=== PATIENT | female | born 1995 | race Caucasian/White ===

== ENCOUNTER 2024-07-17 10:54 | Outpatient (AMB) | payer OTHER, SELFPAY ==
--- NOTE | 2024-07-17 10:59 | MHC.PC.OV ---
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 Intake Note: new patient to establish care Timekeeping Supervisor Required: No Allergies No Known Allergies Allergy (Verified 07/17/24 11:16) Medication List - Last Reconciled 07/17/24 by GRISEL AmezcuaPAdenike methylphenidate HCl ER 36 mg PO DAILY Tobacco use date assessed: 07/17/24 Dental Screening Dental Screen Date: 07/17/24 Did you have a dental visit in the last 12 months?: Yes Did you have a dental problem in the last 6 months where you did not have access to dental care?: No Was dental information given to patient?: Patient has dentist HPI HPI Comments History of Present Illness Details 29 y/o F with ADHD, family hx of DM, hemorrhoids Social: Family hx: Dad, MGF, Sister Type 1 DM 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 c/o abdominal bloating and constipation. The bloating reportedly began at the beginning of the month, and she describes it as feeling super loaded all the time. The patient notes a change in her bowel habits; she typically has a bowel movement daily, but it has become less frequent. She has experienced bright red blood upon wiping, which she attributes to hemorrhoids. She denies any changes in stool color or blood in the stool itself and has no family history of colon cancer. The patient has experienced these symptoms in the context of stress and mentioned having mental issues related to family matters. She uses hydrocortisone cream for a rash on her torso, which she has had for years and is currently not severe. There is a history of an abnormal Pap smear; however, details are unclear. The patient has an IUD and had a gynecological visit a few weeks ago but has not yet established a local clam dredger. 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 - Exercise: Finds gym attendance burdensome due to lack of motivation and interaction with people. - Family History: Type 1 diabetes mellitus in the father, grandfather, and sister. - Stress: Reports considerable stress related to family issues. Health Maintenance - Recent gynecological examination conducted a few weeks ago. - Flu vaccination is up to date. - Lab work for routine screening is ordered to assess general wellness and investigate bloating, including potential links to known family history of diabetes. Physical Exam General: Well developed, well nourished, in no acute distress. Appears stated age. Head: Normocephalic, atraumatic. Eyes: Pupils are equal, round and reactive to light and accommodation. Conjunctivae are clear. Vision grossly normal. Ears: Tympanic membranes clear bilaterally, external auditory canal within normal limits Nose: Patent, without discharge. Mouth: There are no ulcers or lesions noted. No inflammation, no post nasal drip, no plaques nor exudates. Neck: Supple, no adenopathy or thyromegaly. Lungs: Clear to auscultation bilaterally. No rales, rhonchi or wheeze noted. Good air flow in all franco. Heart: Regular rate and rhythm. No murmurs, click, rubs or gallops are noted. Abdomen: Bowel sounds present in all quadrants, hypoactive, The abdomen is soft, nontender, with no masses or organomegaly noted. No hernias are noted. Musculoskeletal: Joints are nontender, without swelling, redness, or effusions. Range of motion is observed to be normal. Pulses: Peripheral pulses are equal and palpable bilaterally. Extremities: No clubbing, cyanosis nor edema is noted. Neurologic: Gait and station normal. Cranial Nerves 2-12 intact. Motor strength grossly symmetrical and intact. No sensory loss. Balance normal. Skin: Rash noted on torso, tinea versicolor to torso, left upper back is a hypopigmented skin lesion. No other rashes, ulcers, or lesions noted. Turgor is good. Skin color is good. Hair and nails are without abnormalities. Psych: Normal eye contact, affect and mood appropriate, and normal interactions. Patient is alert and appropriate to context. Reports increased stress and some difficulty with motivation and energy levels, but denies feeling hopeless. Plan - Abdominal Bloating and Constipation: Recommend increasing dietary fiber intake and hydration. Consider [id number] laxatives, such as a magnesium supplement, to facilitate bowel movements. Educate about stool softeners like docusate. Or try probiotic - Hemorrhoids: Referral to general surgery for potential removal, especially if they become more bothersome. - Rash: Recommend using [id number]-[id number] selenium sulfide shampoo for the tinea versicolor to manage symptoms affecting the torso. - ADHD: Continue current medication methamphetamine regimen as it is effective - RX by outside prescriber - Health Maintenance: Routine screening labs ordered. Discuss the need to update any due preventative screenings. - Gynecological Health: Referral to [facility] MANAGER for continued women's wellness care. Patient was informed and verbally consented to the use of an ambient scribe for clinic note documentation during this visit. Discussion Notes During our discussion, I reviewed the patient's primary complaints, emphasizing the likely diagnosis of constipation-related abdominal bloating and hemorrhoids, given the presentation of symptoms. I encouraged dietary changes and suggested considering medical intervention for hemorrhoids if symptoms persist. Regarding the rash, I explained fungal etiology and recommended topical treatment with selenium sulfide shampoo. We also discussed her ADHD management, noting effectiveness. Health maintenance was addressed, with an emphasis on updating routine labs and exams, especially concerning her family history of diabetes. A referral to a local [facility] RECRE[facility] FAC[facility]ITIES MANAGER was also suggested in light of the patient's recent move and no established care locally. We discussed the necessity of surgical consultation for bothersome hemorrhoids and dermatological evaluation for the persisting rash. Patient Instructions - Increase fiber intake by consuming fruits, vegetables, and whole grains. - Maintain adequate hydration by drinking sufficient water daily. - Apply selenium sulfide shampoo as instructed on affected skin areas. - Continue ADHD medications as prescribed and monitor stress levels. - Complete all ordered lab work and follow up on any recommended results. - Attend consultation appointments with surgery and dermatology as planned. - Follow up with the referred [facility] RE[facility] FAC[facility]ITIES MANAGER to establish local care. - Return for evaluation if symptoms worsen or new symptoms develop RTO 1 year for CPE, sooner PRN. An additional 15 minutes was spent addressing the problem(s) noted at todays visit. This includes time spent before the visit reviewing the chart, time spent during the visit, and time spent after the visit on documentation [facility] Medical History (Updated 07/17/24 @ 17:08 by ESTHER Amezcua) No pertinent past medical history Surgical History (Updated 07/17/24 @ 11:06 by Yuriy Jenkins MA) No pertinent past surgical history Family History Father Hypertension Diabetes Paternal Grandmother Cardiovascular disease Paternal Grandfather Diabetes Sister Diabetes Social History Household Members: Spouse Both parents involved: No Caregiver staying overnight: No Housing: Apartment Are you a primary hemodialysis patient care specialist to a significant other at home: No Do you presently have visiting nurse or other home services: No 75 years or older and lives alone: No Alcohol intake: current Alcohol intake frequency: a few times a month Patient Tobacco Use Status: Never used Tobacco e-Cigarette/Vaping Use: Never Used Second Hand Smoke Exposure: No service: Yes Current occupational status: employed Current occupation: [employer] Cognitive needs: No Hearing needs: No Vision needs: No Questionnaire PHQ-9 Over the last 2 weeks, how often have you been bothered by any of the following problems? 1. Little interest or pleasure in doing things: not at all 2. Feeling down, depressed, or hopeless: not at all 3. Trouble falling or staying asleep, or sleeping too much: more than half the days 4. Feeling tired or having little energy: several days 5. Poor appetite or overeating: not at all 6. Feeling bad about yourself - or that you are a failure or have let yourself or your family down: not at all 7. Trouble concentrating on things, such as reading the newspaper or watching television: not at all 8. Moving or speaking so slowly that other people could have noticed. Or the opposite - being so fidgety or restless that you have been moving around a lot more than usual: not at all 9. Thoughts that you would be better off or of hurting yourself in some way: not at all Total score: 3 Depression Screening Interpretation: Negative Depression Screening Done: Yes 92735 - PHQ-9 Billing: Yes Source: Developed by Drs. Chang Kunz, Emily Mccabe, Matt Walters and colleagues, with an educational thierno from [employer]. Thrive Questionnaire Date Thrive assessed: 07/17/24 I am a: Patient What is your living situation today?: I have a steady place to live Within the past 12 months, did the food you bought not last and you didn't have the money to get more?: Never true Within the past 12 months, did you worry whether your food would run out before you got money to buy more?: Never true Do you have trouble paying for medicines?: No Do you have trouble getting transportation to medical appointments?: No Do you have trouble paying your heating and electricity bill?: No Do you have trouble taking care of your child, family member or friend?: No Do you have trouble with day-to-day activities such as bathing, preparing meals, shopping, managing finances, etc.?: No Are you currently unemployed and looking for a job?: No Are you interested in more education?: I choose not to answer this question Please select the resources that you would like help with: None Currently or been in a relationship where the following occur: No concerns reported THRIVE Score: 0 AUDIT C Alcohol Use Questionnaire (AUDIT-C) 1. How often do you have a drink containing alcohol?: 2-4 times a month 2. How many drinks containing alcohol do you have on a typical day when you are drinking?: 3 or 4 3. How often do you have six or more drinks on one occasion?: Never Total Score: 3 Score Reviewed/Action Taken: Yes JONNIE-7 AMB Questionnaire JONNIE-7 Date JONNIE - 7 assessed: 07/17/24 Feeling nervous, anxious, or on edge: 0 = Not at all Not being able to stop or control worryin = Not at all Worrying too much about different things: 0 = Not at all Trouble relaxin = Not at all Being so restless that it is hard to sit still: 0 = Not at all Becoming easily annoyed or irritable: 1 = Several days Feeling afraid as if something awful might happen: 0 = Not at all Total JONNIE-7 score (0-4 normal; 5-9 mild; 10-14 moderate; 15-21 severe): 1 Source: Developed by Drs. Chang Kunz, Emily Mccabe, Matt Walters and colleagues, with an educational thierno from [employer]. JONNIE-7 Assessment Billing JONNIE-7 Assessment Tool: JONNIE-7 Assessment 07500 Physical exam (Primary Care) Vital Signs: Last Vital Signs Pulse 61 07/17/24 11:06 Resp 13 07/17/24 11:06 BP 139/86 07/17/24 11:06 Pulse Ox 100 07/17/24 11:06 Oxygen Delivery Method Room Air 07/17/24 11:06 BMI result Body Mass Index 25.1 Tobacco/Smoking Status: Tobacco use Status Tobacco use date assessed 07/17/24 07/17/24 11:08 Patient Tobacco Use Status Never used Tobacco 07/17/24 11:08 e-Cigarette/Vaping Use Never Used 07/17/24 11:08 PHQ-9: PHQ-9 Score PHQ-9: Total score 3 07/17/24 12:19 Depression Screening Interpretation: Negative Thrive Assessment: Date of Thrive Assessment Date Thrive assessed 07/17/24 07/17/24 11:08 Currently or been in a relationship where the following occur: No concerns reported Coding Level of Care Code New Pt Level 2 (85797) New Pt Prev Care 18-39yr(04676 Diagnoses Encounter for general adult medical examination with abnormal findings Z00.01 Family history of diabetes mellitus Z83.3 Laboratory exam ordered as part of routine general medical examination Z00.00 Abdominal bloating R14.0 Attention deficit hyperactivity disorder (ADHD), predominantly inattentive type F90.0 Attention deficit-hyperactivity disorder type: predominantly inattentive Grade I hemorrhoids K64.0 Hemorrhoid type: first degree Tinea versicolor B36.0 Atypical pigmented skin lesion L81.9 Encounter to establish care with new doctor Z76.89 Additional Codes JONNIE-7 Assessment Billing - JONNIE-7 Assessment Tool: JONNIE-7 Assessment 34960 ([id number]) PHQ-9 - 20859 - PHQ-9 Billing: Yes ([id number]) Assessment & Plan Assessment & Plan (1) Encounter for general adult medical examination with abnormal findings: Code(s): Z00.01 - Encounter for general adult medical examination with abnormal findings (2) Family history of diabetes mellitus: Code(s): Z83.3 - Family history of diabetes mellitus Category: Medical (3) Laboratory exam ordered as part of routine general medical examination: Code(s): Z00.00 - Encounter for general adult medical examination without abnormal findings Category: Medical (4) Abdominal bloating: Code(s): R14.0 - Abdominal distension (gaseous) Category: Medical (5) ADHD: Code(s): F90.9 - Attention-deficit hyperactivity disorder, unspecified type Category: Medical Qualifiers: Attention deficit-hyperactivity disorder type: predominantly inattentive Qualified Code(s): F90.0 - Attention-deficit hyperactivity disorder, predominantly inattentive type (6) Hemorrhoids: Code(s): K64.9 - Unspecified hemorrhoids Category: Medical Qualifiers: Hemorrhoid type: first degree Qualified Code(s): K64.0 - First degree hemorrhoids (7) Tinea versicolor: Code(s): B36.0 - Pityriasis versicolor Category: Medical (8) Atypical pigmented skin lesion: Comment: LEFT UPPER BACK Code(s): L81.9 - Disorder of pigmentation, unspecified Category: Medical (9) Encounter to establish care with new doctor: Code(s): Z76.89 - Persons encountering health services in other specified circumstances Plan . Orders: Orders Complete Blood Count no Diff Today Z00.00 - Encounter for general adult medical examination without abnormal findings Lipid Panel Today Z00.00 - Encounter for general adult medical examination without abnormal findings Microalbumin, Random (w Creat) Today Z00.00 - Encounter for general adult medical examination without abnormal findings TSH reflex Free T4 Today Z00.00 - Encounter for general adult medical examination without abnormal findings Vitamin D 25-OH Total Today Z00.00 - Encounter for general adult medical examination without abnormal findings UA CC w/rflx Micro + Cult Today Z00.00 - Encounter for general adult medical examination without abnormal findings Comprehensive Met. Panel Today Z00.00 - Encounter for general adult medical examination without abnormal findings Hemoglobin A1c Today Z00.00 - Encounter for general adult medical examination without abnormal findings Vitamin B12 and Folate Today Z00.00 - Encounter for general adult medical examination without abnormal findings Referrals [facility] RE[facility]AC[facility]ITIES MANAGER Referral Z12.4 - Encounter for screening for malignant neoplasm of cervix General Surgery Referral K64.9 - Unspecified hemorrhoids Dermatology Referral B36.0 - Pityriasis versicolor, L81.9 - Disorder of pigmentation, unspecified Patient Instructions: Health screenings for women You should visit your health care provider from time to time, even if you are healthy. The purpose of these visits is to: Screen for medical issues Assess your risk for future medical problems Encourage a healthy lifestyle Update vaccinations and other preventive care services Help you get to know your provider in case of an illness Information Even if you feel fine, you should still see your provider for regular checkups. These visits can help you avoid problems in the future. For example, the only way to find out if you have high blood pressure is to have it checked regularly. High blood sugar and high cholesterol levels also may not have any symptoms in the early stages. A simple blood test can check for these conditions. There are specific times when you should see your provider or receive specific health screenings. The [place] Preventive Services Task Force publishes a list of recommended screenings. Below are screening guidelines for women ages 18 to 39. BLOOD PRESSURE SCREENING Your blood pressure should be checked at least once every 3 to 5 years if: Your blood pressure is in the normal range (top number less than 120 mm Hg and bottom number less than 80 mm Hg) You don't have risk factors for high blood pressure Ask your provider if you need your blood pressure checked more often if: The top number is 120 to 129 mm Hg or the bottom number is 70 to 79 mm Hg You have diabetes, heart disease, kidney problems, are overweight, or have certain other health conditions You have a first-degree relative with high blood pressure You are Black You had high blood pressure during a If the top number is 130 mm Hg or greater or the bottom number is 80 mm Hg or greater, this is considered stage 1 hypertension. Schedule an appointment with your provider to learn how you can reduce your blood pressure. Watch for blood pressure screenings in your area. Ask your provider if you can stop in to have your blood pressure checked. BREAST CANCER SCREENING Experts do not agree about the benefits of breast self-exams in finding breast cancer or saving lives. Talk to your provider about what is best for you. A screening mammogram is not recommended for most women under age 40. Your provider may discuss and recommend mammograms, MRI scans, or ultrasounds if you have an increased risk for breast cancer, such as: A mother or sister who had breast cancer at a young age (most often starting screening earlier than the age the close relative was diagnosed) You carry a high-risk genetic marker CERVICAL CANCER SCREENING Cervical cancer screening should start at age 21 years unless your provider advises otherwise. After the first test: Women ages 21 through 29 should have a Pap test every 3 years. Exoprts do not agree on whether HPV testing is recommended for this age group. Women ages 30 through 65 should be screened with either a Pap test every 3 years or the HPV test every 5 years or both tests every 5 years (called cotesting ). Women who have been treated for precancer (cervical dysplasia) should continue to have Pap tests for 20 years after treatment or until age 65, whichever is longer. If you have had your uterus and cervix removed (total hysterectomy), and you have not been diagnosed with cervical cancer or precancer (high grade cervical neoplasia), you do not need cervical cancer screening. CHOLESTEROL SCREENING Cholesterol screening should begin at: Age 45 for women with no known risk factors for coronary heart disease Age 20 for women with known risk factors for coronary heart disease Repeat cholesterol screening should take place: Every 5 years for women with normal cholesterol levels More often if changes occur in lifestyle (including weight gain and diet) More often if you have diabetes, heart disease, kidney problems, or certain other conditions DIABETES SCREENING You should be screened for diabetes starting at age 35 and then repeated every 3 years if you have no risk factors for diabetes. Screening may need to start earlier and be repeated more often if you have other risk factors for diabetes, such as: You have a first degree relative with diabetes. You are overweight or have obesity. You have high blood pressure, prediabetes, or a history of heart disease. Screening for diabetes should be done if you are planning to become and you are overweight and have other risk factors such as high blood pressure. DENTAL EXAM Go to the dentist once or twice every year for an exam and cleaning. Your dentist will evaluate if you need more frequent visits. EYE EXAM Have an eye exam every 5 to 10 years before age 40. If you have vision problems, have an eye exam every 2 years or more often if recommended by your provider. You should have an eye exam that includes an examination of your retina (back of your eye) at least every year if you have diabetes. IMMUNIZATIONS Commonly needed vaccines include: Flu shot: get one every year. COVID-19 vaccine: ask your provider what is best for you. Tetanus-diphtheria and acellular pertussis (Tdap) vaccine: have one at or after age 19 as one of your tetanus-diphtheria vaccines if you did not receive it as an adolescent. Tetanus-diphtheria: have a booster (or Tdap) every 10 years. Varicella vaccine: receive 2 doses if you never had chickenpox or the varicella vaccine. Hepatitis B vaccine: receive 2, 3, or 4 doses, depending on your exact circumstances. Measles, mumps, and rubella (MMR) vaccine: receive 1 to 2 doses if you are not already immune to MMR. Your provider can tell you if you are immune. Ask your provider about the human papillomavirus (HPV) vaccine if: You have not received the HPV vaccine in the past You have not completed the full vaccine series (you should catch up on this shot) Ask your provider if you should receive other immunizations if you have certain health problems that increase your risk for some diseases such as pneumonia. INFECTIOUS DISEASE SCREENING Women who are sexually active should be screened for chlamydia and gonorrhea up until age 25. Women 25 years and older should be screened for chlamydia and gonorrhea if at high risk. Screening for hepatitis C: All adults ages 18 to 79 should get a one-time test for hepatitis C. people should be screened at every . Screening for human immunodeficiency virus (HIV): All people ages 15 to 65 should get a one-time test for HIV. Depending on your lifestyle and medical history, you may also need to be screened for infections such as syphilis and HIV, as well as other infections. PHYSICAL EXAM All adults should visit their provider from time to time, even if they are healthy. The purpose of these visits is to: Screen for disease Assess your risk of future medical problems Encourage a healthy lifestyle Update your vaccinations and other preventive care services Maintain a relationship with a provider in case of an illness Your height, weight, and BMI should be checked at every exam. During your exam, your provider may ask you about: Depression and anxiety Diet and exercise Alcohol and tobacco use Safety issues, such as using seat belts, smoke detectors, and intimate partner violence Your medicines and risk for interactions SKIN SELF-EXAM Your provider may check your skin for signs of skin cancer, especially if you're at high risk, such as if you: Have had skin cancer before Have close relatives with skin cancer Have a weakened immune system OTHER SCREENING Talk with your provider about colon cancer screening if you have a strong family history of colon cancer or polyps, or if you have had inflammatory bowel disease or polyps yourself. Routine bone density screening of women under 40 is not recommended. Walk-In Care (Urgent Care): [facility] Walk-in for urgent medical issues such as: ? Seasonal Allergies ? Insect Bites ? Cough ? Diarrhea ? Acute Asthma Attacks ? Back, Knee or Joint Pain ? Ear Infection ? Fever without a Rash ? Headaches ? Nausea ? [place] [facility], Rash or Skin Irritation ? Sore Throat ? Sports Physicals ? Vomiting Most insurances are accepted. Patients do not need to be part of the [facility] to seek care at the walk-in clinic. Locations [address] [facility] , [place] [address] ? [phone] [facility] Walk-In Care in [place] provides services to ages 18 and over. Open Monday-Monday: 8 a.m. to 5 p.m. and Monday: 9 a.m. to 3 p.m.* *Hours may vary due to staffing availability. To confirm Walk-In Care hours in [place], please call [phone]. [address] [place] [address] ? [phone] [facility] Walk-In Care in [place] provides services to ages 12 and over. Open Monday-Monday: 8 a.m. to 5 p.m. Hours may vary due to staffing availability. To confirm Walk-In Care hours in [place], please call [phone]. LABORATORY SERVICES: [facility] ? Primary Location [address] [place] [address] Monday through Monday 6:00 AM ? 5:00 PM Monday 7:00 AM ? 11:00 AM* [phone] The [facility] is centrally located near the front entrance of the [facility] for easy outpatient access. Convenient parking is provided for outpatients. *Hours may vary due to staffing availability. To confirm Laboratory hours for any location, please call [phone]. Offsite Location For your convenience, we offer offsite laboratory draw stations at the following locations: [address] [place] [address] ? [address], [address] [place] [address] Monday through Monday 7:30 AM ? 1:00 PM* [phone] *Hours may vary due to staffing availability. To confirm Laboratory hours for any location, please call [phone]. [place] ? [address] Monday through Monday 6:00 AM ? 3:30 PM* Monday 6:30 AM ? 3 PM* [phone] *Hours may vary due to staffing availability. To confirm Laboratory hours for any location, please call [phone]. [address] [facility] Monday through Monday 7:30 AM ? 4:00 PM* [phone] *Hours may vary due to staffing availability. To confirm Laboratory hours for any location, please call [phone]. [address] [facility] Monday through 9:00 AM ? 4:00 PM* *Hours may vary due to staffing availability. To confirm Laboratory hours for any location, please call [phone]. Appointments are not necessary. Walk-ins are welcome. Like all the departments throughout the [facility], our Lab undergoes frequent reviews to ensure the quality and accuracy of test results, and our staff takes special pride in its status as a nationally accredited facility. Patient Portal: ONE PATIENT. ONE RECORD. BETTER CARE. [facility] has a fully integrated, cutting-edge mobile electronic health information system that has revolutionized the way we care for our patients and manage our organization. This system improves communication and coordination enabling us to provide safe, higher-quality care, and an overall positive experience for staff and patients. Our first priority, as always, is to deliver the highest quality care possible. The system is running in the background supporting that priority. This portal is for all [facility] and [facility] services and practices. If you are experiencing any technical difficulties with enrolling or logging into the Patient Portal please complete the [facility] Patient Portal Technical Support Form. [facility] and [facility] now offers a new secure on-line interactive tool for patients to review their health information ? Patient Portal. This interactive web portal will enable patients and their families to take an active role in their care by providing easy, secure access to their health information via the internet. The Patient Portal provides patients with instant access to their health information, including laboratory results, medications, allergies, demographic information, visit history, and more. In addition to managing their own care, parents and health care proxies with authorized consent will appreciate the ability to access the records of those individuals for whom they provide care. Please note: if you wish to gain access (Proxy) to another patient?s portal, you will be required to come to the Medical Records Department in person at [facility]. Both the patient giving proxy access and the proxy will need to provide photo identification and complete the appropriate authorization. The Patient Portal also allows track their appointments online. The [facility] Patient Portal also saves patients time by allowing them to submit updates to their demographic and contact information prior to their visits. Portal email notifications will also alert patients to any new activity on their portal, such as test results and new appointments. In order to initially enroll in the [facility] Patient Portal, you will need to enter some required information including the following: ? your [facility] Medical Record number ? your personal home email address ? name ? date of Please note: In order to enroll in the [facility] Patient Portal, we need to have your email address on file in your electronic medical record. The email address needs to be specific for one person (yourself) in order for your Portal enrollment to be successful. You can update your email address in person with our Registration staff when you are registering for a hospital visit. Otherwise, you will need to come to the Health Information Management (Medical Records) Department at [facility]. We are open from Monday ? Monday from 7:30 a.m. ? 4:30 p.m. You will be required to present a photo id. Once you have successfully enrolled in the Patient Portal, you will receive a one-time user id and password for the Portal, sent to your email address. This will allow you to log into the Patient Portal within 99 hrs and reset your own logon id and password, and define personal security questions. Once your permanent login and password have been set, you can log into the [facility] Patient Portal at any time via the blue button above or from the Portal Logon button on any page of the [facility] website. [facility] and [facility] encourage all of our patients to enroll in Patient Portal as it presents a valuable opportunity for patients and their families to actively participate in their care and stay healthy Welcome to [facility]. We look forward to working with you. TRY SELSUN BLUE SHAMPOO THAT HAS SALICYLIC ACID APPLY TO BODY AND LET STAND FOR 5-10 MIN TEN RINSE PERFORM DAILY
[2024-07-17 11:06] VITALS: BP 139/86; PULSE 61; RESP 13; O2SAT 100; BMI 25.1
--- OUTSIDE RECORDS SUMMARY | 2024-07-23 17:50 | XMS_ITS | Data Portability ---
Author Organization [place] - [facility] [employer] Address [address] [place] [address] Care Team Providers Care Door Liner Name Role Phone LAURA CORREABETH Primary Care Provider Assessment No assessment recorded. Plan of Treatment Reminders Order Date Submit Date Provider Last Modified By Organization Details Last Modified Time Details Appointments None recorded. Lab pap, LB + reflex HPV mRNA E6/E7 - 27yo with Kyleena IUD in place 2021 022 [facility] [address], [address], 2 12:42:53 test, urine 2022 023 [email or web address] 3 Main Office, [address] [place] [address], [facility], [place], [address], 3 16:33:54 biopsy, tissue 2022 023 [facility], [address], [address], 3 09:49:43 Referral None recorded. Procedures None recorded. Surgeries None recorded. Imaging None recorded. Medication Orders None recorded. Patient TargetsNo targets recorded. Patient Instructions Encounter Date Encounter Id Patient Instructions Last Modified By Organization Details Last Modified Time 07/30/2021 [id number] It was a pleasur e to see you at your visit today. Please see my health care recommendations for women below. If you have not already done so, please consider signing up for our online patient portal. Visit our web site at [email or web address] for more general health information > Eat 5 - 7 servings of fruits and vegetables each day. Avoid sugars, artificial sweeteners, simple carbohydrates like bread and pasta, processed foods and fast food. Making these choices will decrease fat, sodium, and calories. > Try to attain and maintain an ideal weight or BMI. The current recommendation is to have your BMI between 18.5 and 24.9. > Your diet should include at least 1000 mg of calcium each day, either in milk products, food supplemented with calcium. Your intake of vitamin D should be 1000 to 2000 units of vitamin D3 daily. > I recommend 400 micrograms of folic acid for all women of reproductive age. Fish Oil 1,000mg daily is also recommended. > Get regular exercise. Many experts recommend that all healthy adults between the ages of 18 and 65 get moderate intensity exercise at least 30 minutes per day for 5 or more days per week. But, exercising three times per week can do a lot for your physical and emotional well being. Strength training is especially important for maintaining bone quality as you age. > Don't smoke or drink alcohol in excess. It is unhealthy to drink more than 3 alcoholic beverages at a time, no more than 7-10 drinks per week. > If you are planning a , please talk with us about your preconception health. > If you have unprotected sexual intercourse, remember over the counter emergency contraception (Plan B) is available at your local pharmacy, in [place]. > It is easier to prevent a sexually transmitted disease than to treat an infection once it occurs. You can limit your exposure to STDs by practicing safe sex with use of condoms. > Use seatbelts whenever you travel, regardless of the duration of your ride. > If you feel threatened by another person at your home, workplace or elsewhere, please let me know, or for more information, contact the National Domestic Abuse Hotline (9-027-566-OSSC). > If you often feel sad or depressed, please let me know. Depression is very common and can potentially affect your overall health. It usually responds to counseling and/or medications. > Keep your immunizations up to date. [email or web address] Not available 07/30/2021 09:22:06 08/02/2022 [id number] It was a pleasur e to see you at your visit today. Please see my health care recommendations for women below. If you have not already done so, please consider signing up for our online patient portal. Visit our web site at [email or web address] for more general health information > Eat 5 - 7 servings of fruits and vegetables each day. Avoid sugars, artificial sweeteners, simple carbohydrates like bread and pasta, processed foods and fast food. Making these choices will decrease fat, sodium, and calories. > Try to attain and maintain an ideal weight or BMI. The current recommendation is to have your BMI between 18.5 and 24.9. > Your diet should include at least 1000 mg of calcium each day, either in milk products, food supplemented with calcium. Your intake of vitamin D should be 1000 to 2000 units of vitamin D3 daily. > I recommend 400 micrograms of folic acid for all women of reproductive age. Fish Oil 1,000mg daily is also recommended. > Get regular exercise. Many experts recommend that all healthy adults between the ages of 18 and 65 get moderate intensity exercise at least 30 minutes per day for 5 or more days per week. But, exercising three times per week can do a lot for your physical and emotional well being. Strength training is especially important for maintaining bone quality as you age. > Don't smoke or drink alcohol in excess. It is unhealthy to drink more than 3 alcoholic beverages at a time, no more than 7-10 drinks per week. > If you are planning a , please talk with us about your preconception health. > If you have unprotected sexual intercourse, remember over the counter emergency contraception (Plan B) is available at your local pharmacy, in [place]. > It is easier to prevent a sexually transmitted disease than to treat an infection once it occurs. You can limit your exposure to STDs by practicing safe sex with use of condoms. > Use seatbelts whenever you travel, regardless of the duration of your ride. > If you feel threatened by another person at your home, workplace or elsewhere, please let me know, or for more information, contact the National Domestic Abuse Hotline (7-540-801-PTLC). > If you often feel sad or depressed, please let me know. Depression is very common and can potentially affect your overall health. It usually responds to counseling and/or medications. > Keep your immunizations up to date. [email or web address] Not available 08/02/2022 08:59:31 09/23/2022 [id number] You have just rubin d a colposcopy of the cervix. You may experience mild cramping for a day or two. Ibuprofen (Advil???, Motrin???) or Acetaminophen (Tylenol ???) should help. Most women have a bloody or brownish-black (coffee ground) discharge. This may last 3 to 7 days and should taper off. Sometimes, women pass what looks like a small piece of tissue. This is normal and is caused by the solution used to help the biopsy site stop bleeding. If you have had biopsies, you should not have sex or put anything into your vagina until the discharge has stopped (at least 3 days and up to 7 days). The pathology results are usually available in 2 weeks. My office will contact you with the results, but if you do not hear in 2 weeks, please feel free to call the office. Please call the office if you have bleeding heavier than a period, severe cramping or fever over 100 F. [email or web address] Not available 09/23/2022 16:34:56 Reason for Referral None Reported. Results Created Date Observation Date Name Description Value Unit Range Abnormal Flag Note LastModifiedBy Organization Detail LastModifiedTime 08/02/20 22 08/10/2022 THINP REP TIS PAP W/REF L HPV MRNA E6/E7 clinical information: normal 27YO WITH ABEL NA IUD IN PLACE Not Available [facility] [address] [place], [address], 08/10/2022 12:42:53 08/02/20 22 08/10/2022 THINP REP TIS PAP W/REF L HPV MRNA E6/E7 LMP: normal NONE GIVEN Not Available [facility] [address] [place], [address], 08/10/2022 12:42:53 08/02/20 22 08/10/2022 THINP REP TIS PAP W/REF L HPV MRNA E6/E7 prev. Pap: normal NONE GIVEN Not Available [facility] [address] [place], [address], 08/10/2022 12:42:53 08/02/20 22 08/10/2022 THINP REP TIS PAP W/REF L HPV MRNA E6/E7 prev. BX: normal NONE GIVEN Not Available [facility] [place] [facility] [address] [place], [address], 08/10/2022 12:42:53 08/02/20 22 08/10/2022 THINP REP TIS PAP W/REF L HPV MRNA E6/E7 source: normal Cervi x Not Available [facility] [place] [facility] [address] [place], [address], 08/10/2022 12:42:53 08/02/20 22 08/10/2022 THINP REP TIS PAP W/REF L HPV MRNA E6/E7 statement of adequacy: normal Satis facto ry for evalu ation . Endoc ervic al/tr ansfo rmati on zone compo nent absen t. Age and/o r menst rual statu s not provi ded Not Available [facility] [place] [facility] [address] [place], [address], 08/10/2022 12:42:53 08/02/20 22 08/10/2022 THINP REP TIS PAP W/REF L HPV MRNA E6/E7 general categorizati on: abnormal EPITH ELIAL CELL ABNOR MALIT Y Not Available [facility] [place] [facility] [address], [place], [address], 08/10/2022 12:42:53 08/02/20 22 08/10/2022 THINP REP TIS PAP W/REF L HPV MRNA E6/E7 interpretati on/result: abnormal Atypi maria elena Squam ous Cells of Undet ermin ed Signi fican ce (ASC- US) Not Available [facility] [place] [facility] [address], [place], [address], 08/10/2022 12:42:53 08/02/20 22 08/10/2022 THINP REP TIS PAP W/REF L HPV MRNA E6/E7 comment: normal This Pap test has been evalu ated with anh carr techn ology . Not Available [facility] [address], [address], 08/10/2022 12:42:53 08/02/20 22 08/10/2022 THINP REP TIS PAP W/REF L HPV MRNA E6/E7 cytotechnolo gist: normal KN, CT( CP) CT scree mario locat ion: [facility] [address], [place] [address] Not Available [facility] [address], [address], 08/10/2022 12:42:53 08/02/20 22 08/10/2022 THINP REP TIS PAP W/REF L HPV MRNA E6/E7 pathologist: normal Samuel Lee M.D. Direc t Phone [phone], Board Certi fied in Anato lisa and Clini maria elena Patho logy and Cytop athol ogy (elec troni c signa ture) Consu lting Patho logis t [facility] [address] [place] [address] [phone] Not Available [facility] [address], [address], 08/10/2022 12:42:53 08/02/20 22 08/10/2022 THINP REP TIS PAP W/REF L HPV MRNA E6/E7 comment EXPLA NATOR Y NOTE: The Pap is a scree mario test for cervi amria elena cance r. It is not a diagn ostic test and is subje ct to false negat agnieszka and false posit agnieszka resul ts. It is most relia ble when a satis facto ry sampl e, regul michelle obtai summer, is submi tted with relev ant clini maria elena findi ngs and histo ry, and when the Pap resul t is evalu ated along with histo eunice and curre nt clini maria elena infor suly grullon. Not Available [facility] [place] [facility] [address], [address], 08/10/2022 12:42:53 08/02/20 22 08/10/2022 HPV MRNA E6/E7 HPV MRNA E6/E7 Detect ed not detect ed abnormal Metho dolog y: Trans cript ion-M ediat ed Ampli ficat ion This assay detec ts E6/E7 viral messe nger RNA (mRNA ) from 14 high- risk HPV types (16,1 8,31, 33,35 ,39,4 5,51, 52,56 ,58,5 9,66, 68). Cervi maria elena sourc es are requi red for HPV testi ng. If a vagin al sourc e from a patie nt who has had a total hyste recto my with remov al of cervi x was submi tted, pleas e conta ct the testi ng labor atory for alter nativ e testi ng optio ns. For addit ional infor darrius teresa refer to http: //darion alexander stdia gnost ics.c om/fa q/FAQ 129v1 (This link if provi ded for infor suly grullon/ educarmen nichols purpo ses only. ) Not Available [facility] [place] [facility] [address], [place], [address], 08/10/2022 12:42:54 09/23/19 23 09/30/2022 TISSU E PATHO LOGY clinical information ICD CODE; R87.6 19 Not Available [facility] [place] [facility] [address], [address], 09/30/2022 09:49:43 09/23/19 23 09/30/2022 TISSU E PATHO LOGY pathologist Tosha patino M.D. Board Certi fied in Anato lisa Patho logy and [place] topat holog y (elec troni c signa ture) Not Available [facility] [address] [place], [place], [address], 09/30/2022 09:49:43 09/23/19 23 09/30/2022 TISSU E PATHO LOGY A source 5 AND 12OCL OCK CERVI X Not Available [facility] [place] [facility] [address], [place], [address], 09/30/2022 09:49:43 09/23/1909/30/2022 TISSU E PATHO LOGY A gross description The conta iner is label ed with johann nt's name and sourc e 5+12 . Speci men is recei josephine in forma parveen and consi sts of two piece s of medel tissu e measu ring 0.3 x 0.2 x 0.1 cm and 0.3 x 0.1 x 0.1 cm. Speci men is left intac t and submi tted entir vargas in casse tte A1. 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 Not Available [facility] [address] [place], [place], [address], 09/30/2022 09:49:43 09/23/19 23 09/30/2022 TISSU E PATHO LOGY B source ECC Not Available [facility] [address], [place], [address], 09/30/2022 09:49:43 09/23/19 23 09/30/2022 TISSU E PATHO LOGY B gross description The conta iner is label ed with johann nt's name and sourc e ECC . Recei josephine in forma parveen is an endoc ervic al brush with adher ent mucoi d mater ial. The mater ial measu res 2.7 x 1.8 x 0.1 [address] gate. Speci men is submi tted entir vargas in casse tte B1. KT 09/26 Not Available [facility] [address], [place], [address], 09/30/2022 09:49:43 09/23/19 23 09/30/2022 TISSU E PATHO LOGY B diagnosis Fragm ents of unrem arkab le endoc ervic al gland ular mucos a. Not Available [facility] [place] [facility] [address], [place], [address], 09/30/2022 09:49:43 09/23/19 23 09/23/2022 pregn rose test, urine HCG negati ve Not Available Main Office [address], [place], [address], 09/23/2022 15:11:46 Result Notes None recorded. Problems Name Problem SNOMED Code Status Onset Date Resolution Date Notes Provider Name and Address Organization Details Recorded Time Depressiv e disorder 27720477 Active 2020 opal zhong [place] - [facility] 12:25:54 Chlamydia l infection 703460116 Completed 201707/30/2021 Anne Casillas MD [address], [address], [facility] 1 18:05:46 Intrauter ine contracep tive device in situ 309306020 Active 2020 Anne Casillas MD [address] [place] [address], [place], [address], [facility] 18:06:22 Atypical squamous cells of undetermi summer significa nce on cervical Papanicol aou smear 357899699 Active 2022 2 ASCUS +HPV 09/2022 Colpo PARDEEP 1 at 5 & 12 o'cloc k, ECC neg Anne Casillas MD [address] [place] [address], [place], [address], [facility] 3 16:03:01 Problem Notes None recorded. Procedures Surgical History Date Name Laterality Status Provider Name and Address Organization Details Recorded Time 09/23/19 23 Colposcopy completed Anne Casillas MD [address] [place] [address], [place], [address], [facility] 09/23/2022 16:31:58 07/30/20 22 Date of Last Pap Smear completed Anne Casillas MD [address] [place] [address], [place], [address], [facility] 08/16/2022 10:09:48 Imaging Results None recorded. Procedure Notes None recorded. Medical Equipment None Reported. Allergies No known drug allergies Medications Name Sig Start Date Stop Date Status Note LastModified by Organization Details LastModified Time venlafaxine ER 75 mg capsule,ext ended release 24 hr TAKE 1 CAPSULE BY MOUTH EVERY DAY active Not Available Not Available No t Available phenazopyri dine 200 mg tablet TAKE 1 TABLET BY MOUTH THREE TIMES A DAY 08/02 completed Not Available Not Available Not Available triamcinolo ne acetonide 0.1 % topical cream APPLY TOPICALLY TO RASH TWICE A DAY FOR UP TO 2 WEEKS 08/02 completed Not Available Not Available Not Available hydroxyzine HCl 10 mg tablet 07/30 completed Not Available Not Available Not Available amoxicillin 875 mg-andrew m clavulanate 125 mg tablet 07/30 completed Not Available Not Available Not Available atomoxetine 10 mg capsule TAKE 1 CAPSULE BY MOUTH EVERY DAY 09/23 completed Not Available Not Available Not Available nitrofurant oin monohydrate /macrocryst als 100 mg capsule TAKE 1 CAPSULE BY MOUTH TWICE A DAY 08/02 completed Not Available Not Available Not Available Kyleena 17.5 mcg/24 hr (up to 5 years) 19.5 mg intrauterin e device Take by intrauter ine route. 2019 active Not Available Not Available Not Avai lable Vitals Date Recorded Respiratory rate Heart rate Oxygen saturation Oxygen saturation in Arterial blood by Pulse oximetry Body temperature Body weight Body mass index (BMI) Body height Systolic blood pressure Diastolic blood pressure Provider Name and Address Organization Details Last Updated DateTime 1 16 /min 88 /min 99 % 99 % 97.5 [degF] 48599.4 7 g 9.7 kg/m2 172.72 cm 120 mm[Hg] 72 mm[Hg] opal rinaldi [facility] 1 09:22:25 Date Recorded Body weight Body mass index (BMI) Body height Respiratory rate Body temperature Heart rate Oxygen saturation Oxygen saturation in Arterial blood by Pulse oximetry Systolic blood pressure Diastolic blood pressure Provider Name and Address Organization Details Last Updated DateTime 2 25214.2 7 g 24.8 kg/m2 172.72 cm 12 /min 97.8 [degF] 76 /min 99 % 99 % 110 mm[Hg] 70 mm[Hg] elvisisis shah [facility] 2 09:04:28 Date Recorded Body height Provider Name an d Address Organization Details Last Updated DateTime 09/23/2022 172.72 [facility] 09/23/2022 15:11:23 Date Recorded Body mass index (BMI) Body weight Body temperature Oxygen saturation Oxygen saturation in Arterial blood by Pulse oximetry Heart rate Respiratory rate Systolic blood pressure Diastolic blood pressure Provider Name and Address Organization Details Last Updated DateTime 3 23.9 kg/m2 11824.7 2 g 97.7 [degF] 100 % 100 % 75 /min 14 /min 112 mm[Hg] 78 mm[Hg] NORMA VALENCIA [place] - [facility] 3 15:18:33 Social History Question Answer Notes LastModified by Organization Details LastModified Time Tobacco Smoking Status Never Smoker Cherelle zhong [place] - [facility] 07/29/2021 10:38:08 What Is Your Level Of Alcohol Consumption? Occasional [email or web address] Information not available 07/29/2021 How Many Years Have You Consumed Alcohol? 8 [email or web address] Information not available 07/29/2021 In The 14 Days Before Symptom Onset, Have You Had Close Contact With A Laboratory-confi rmed COVID-19 While That Case Was Ill? No [email or web address] Information not available 09/23/2022 In The 14 Days Before Symptom Onset, Have You Had Close Contact With A Person Who Is Under Investigation For COVID-19 While That Person Was Ill? No [email or web address] Information not available 09/23/2022 Have You Been To An Area Known To Be High Risk For COVID-19? No [email or web address] Information not available 09/23/2022 Are You Currently Employed? Yes [email or web address] Information not available 09/23/2022 What Type Of Diet Are You Following? REGULAR [email or web address] Information not available 07/29/2021 What Is Your Occupation? [employer] [email or web address] Information not available 07/29/2021 What Was The Date Of Your Most Recent Tobacco Screening? 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 Always [email or web address] Information not available 07/29/2021 What Is Your Relationship Status? Single [email or web address] Information not available 07/29/2021 Do You Use Your Seat Belt Or Car Seat Routinely? Yes [email or web address] Information not available 07/29/2021 Are You Sexually Active? Yes [email or web address] Information not available 07/29/2021 Do You Feel Stressed (tense, Restless, Nervous, Or Anxious, Or Unable To Sleep At Night)? [id number] [email or web address] Information not available 07/29/2021 Do You Use Any Illicit Or Recreational Drugs? No [email or web address] Information not available 09/23/2022 Do You Or Have You Ever Used Any Other Forms Of Tobacco Or Nicotine? No [email or web address] Information not available 07/29/2021 Sex: Female Functional Status Question Answer Note LastModified by Organization D etails LastModified Time What is your exercise level? Moderate [email or web address] Information not available 07/29/2021 Mental Status None recorded. Family History Relationship Description Onset Age of this Age Resolved Age Notes LastModified by Organization Details LastModified Time Sister Diabetes mellitus 5 type 1 [email or web address] Not available 07/29 10:46:14 Father Diabetes mellitus 48 type 1 in late 40's and had some of pancre as remove d due to diseas e [email or web address] Not available 07/29/2021 10:46:14 Maternal Grandfather Diabetes mellitus 50 type 1 agent orange side effect s Not available 07/29/2021 10:46:14 Medical History Condition Response Bladder Infections - recurrent N Breast Cancer N Anemia Requiring Blood Transfusion N Lung Disease N Defects or Inherited Disease N Varicose veins N Deep Vein Thrombosis N Polycystic ovary syndrome N Anxiety Disorder N x Other N Autoimmune disease N Arthritis N Polyps N Hematologic/blood disorders/thrombophili as N Acid Reflux (GERD) N Dermatologic Disorders, eczema, psoriasi s, other N Stroke N Diabetes, Type 1, 2 or gestational N Endometriosis N Depression N Allergies (latex, food, seasonal, enviro nmental) N High Cholesterol N Breast Problem, Biopsy, Mastitis, Cysts N Urine incontinence N Fibromyalgia N Heart Disease or other problem with hear t N Headaches General N Headaches Migraine with Aura N Thyroid Problems N GI Problems N Acne N Eating Disorder N Neurologic disease or seizure disorder N Anemia N Kidney disease N Ovarian Cancer N Hepatitis/Liver Disease N Depression or other psychiatric illness Y Abuse/Domestic Violence/Trauma N Infertility/IVF or other assisted reprod uction N Asthma N Headaches Migraine Simple N Pre-Eclampsia N Hypertension N Osteoporosis N Gynecological History Statement/Question Response Abnormal Pap Y Flow Light Date of LMP 09/14/2022 STIs/STDs N Y Duration of Flow (days) 5 Current Control Method IUD Age at Menarche 11 Age at First Child 1 Frequency of Cycle (Q days) 30 Sexually Active? Y Date of Last Pap Smear 07/30/2022 Sexual Problems? N Unknown Obstetrics History GPAL:G 0 P 0 0 0 0 Immunizations Vaccine Type Date Status Provider Name and Address Organization Details Recorded Time COVID-19, mRNA, LNP-S, PF, 100 mcg/0.5mL dose or 50 mcg/0.25mL dose 09/06/2020 completed Anne Casillas MD [address] [place] [address], [phone], [facility] 08/16/2022 10:04:03 COVID-19, mRNA, LNP-S, PF, 100 mcg/0.5mL dose or 50 mcg/0.25mL dose 10/09/2020 completed Anne Casillas MD [address] [place] [address], [phone], [facility] 08/16/2022 10:04:03 Influenza, split virus, quadrivalent, preservative 07/18/2021 completed Not Available [employer] 09/23/2022 15:11:11 Influenza, split virus, quadrivalent, preservative 05/23/2018 completed Not Available [employer] 09/23/2022 15:11:11 Influenza, split virus, quadrivalent, PF 05/25/2017 completed Not Available [employer] 09/23/2022 15:11:11 Influenza, split virus, quadrivalent, preservative 06/04/2016 completed Not Available [employer] 09/23/2022 15:11:11 Past Encounters Encounter ID Performer Location Encounter Start Date Encounter Closed Date Diagnosis/Indication Diagnosis SNOMED-CT Code Diagnosis ICD10 Code [id number] Anne Casillas MD Main Office [address] [place] [id number] 07/30/2021 08:56:26 07/30/2021 10:04:27 Gynecologic examination [id number] Z01.419 Intrauteri ne contraceptive device in situ [id number] Z97.5 6789 Anne Casillas MD Main Office [address] [phone] 08/02/2022 08:55:26 08/02/2022 09:20:54 Gynecologic examination [id number] Z01.419 7393 Anne Casillas MD Main Office [address] [phone] 09/23/2022 15:11:09 09/23/2022 16:18:03 Abnormal cervical Papanicolaou smear with human papillomavirus deoxyribonucleic acid detected [id number] R87.619 Health Concerns Section Related Observation LastModified by Organization Detai ls LastModified Time None Recorded Concern Status LastModified by Organization Details LastModified Time None Recorded Advance Directives Directive None Recorded Payers Encounter Date Sequence Insurance Name Policy Number Policy Joshua Covered Member ID Joshua Member ID Guarantor Name 07/30/2021 1 [employer] [employer] 111 Tova Vegaon [id number] [facility] 08/02/2022 1 [place] [facility] [employer] 111 Tova Vegaon [id number] [facility] 09/23/2022 1 [facility] [employer] 111 Tova Thao Jayda [id number] [facility] Notes Date Note Type Note Provider Name and Address Organization Details Recorded Time 07/30/2021 text/html Tova is 26 yo G0 here for annual exam. She has Kyleena IUD for contraception since 08/2020 and previously used on Mirena IUD for about 7 years and has not gotten menses since first IUD was placed in spring. Also using condoms for contraception. She was treated for chlamydia in 2018 and has had STD testing since. She is a monogamous with her boyfriend of 5 years and has no STD concerns, declined testing today. Her father, sister and PGF have type 1 diabetes. She has a history of depression, currently managed with effexor. She has complaints today. She moved here from [place] in 04/2021. 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 Anne Casillas MD [address] [place] [address], [place], [phone], [facility] 08/01/2021 16:35:03 08/02/2022 text/html Tova is a merlene vargas 26yo G0 here for annual exam. She has Kyleena IUD for contraception since 08/2020 and previously used on Mirena IUD for about 7 years. Has occasional very light spotting only. Is able to feel string and checks it occasionally. Unsure if she wants children but not ready in near future. She was treated for chlamydia in 2018 and no STI concerns today as with monogamous boyfriend for 6 years so declined testing. Her father, sister and PGF have type 1 diabetes. She has a history of depression, currently managed with effexor. She has complaints today. She moved here from [place] in 04/2021. 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 Anne Casillas MD [address] [place] [address], [place], [phone], [facility] 08/02/2022 09:30:22 09/23/2022 text/html Tova is a merlene vargas 26yo G0 here for colposcopy for ASCUS +HPV 08/02/22. She has Kyleena IUD for contraception since 08/2020 and previously had Mirena IUD for about 7 years. Has occasional very light spotting only. She has no complaints today. Anne Casillas MD [address] [place] [address], [place], [phone], [facility] 09/23/2022 16:35:49 OBGyn Episode No OBEpisode recorded.
== END 2024-07-17 11:43 | disposition home or self-care (01) ==
PROVIDERS: PCP Nurse Practitioner Family; Visit Provider Nurse Practitioner Family
DX: Z00.00 Encounter for general adult medical examination without abnormal findings (principal); R14.0 Abdominal distension (gaseous); F90.0 Attention-deficit hyperactivity disorder, predominantly inattentive type; K64.0 First degree hemorrhoids; B36.0 Pityriasis versicolor; Z83.3 Family history of diabetes mellitus; L81.9 Disorder of pigmentation, unspecified; Z76.89 Persons encountering health services in other specified circumstances

== ENCOUNTER → 2024-07-17 10:54 | Outpatient (BNVA) | payer OTHER, SELFPAY | PROVIDERS: PCP Nurse Practitioner Family; Visit Provider Nurse Practitioner Family | DX: Z00.01 Encounter for general adult medical examination with abnormal findings (principal); R14.0 Abdominal distension (gaseous); F90.0 Attention-deficit hyperactivity disorder, predominantly inattentive type; K64.0 First degree hemorrhoids; B36.0 Pityriasis versicolor; L81.9 Disorder of pigmentation, unspecified; Z76.89 Persons encountering health services in other specified circumstances; Z83.3 Family history of diabetes mellitus | CPT/HCPCS: 96127; 99202 ==

== ENCOUNTER 2024-07-17 12:07 | Outpatient (REF) | payer OTHER, SELFPAY ==
[2024-07-17 14:14] LABS: Appearance Urine Clear; Color Urine Yellow; Glucose Urine UA Negative (Negative); Leukocyte Esterase Urine Negative (Negative); Nitrite Urine Negative (Negative); PH 7.5 (5.0-9.0); Specific Gravity - Urine <= 1.005 (1.005-1.025); Urine Blood Negative (Negative); Urine Ketones Negative (Negative); Urine Protein Negative (Neg-Trace)
[2024-07-17 14:19] LABS: Hematocrit 42.2 % (37.0-47.0); Hemoglobin 14.2 g/dl (12.0-16.0); Mean Corpuscular HGB Conc 33.6 g/dl (31.0-35.0); Mean Corpuscular Hemoglobin 29.1 pg (27.0-33.0); Mean Corpuscular Volume 86.5 fL (80.0-98.0); Mean Platelet Volume 10.2 fL (9.4-12.3); Platelet Count 220 X10*3/uL (160-400); Red Blood Count 4.88 X10*6/uL (4.20-5.50); Red Cell Distribution Width 12.4 % (11.0-16.0); White Blood Count 6.9 X10*3/uL (4.8-10.8)
[2024-07-17 14:32] LABS: Estimated Average Glucose 88 mg/dL; Hemoglobin A1C 100.2854 umol/L; Hemoglobin A1c % 4.7 % (<6.0); Total Hemoglobin (HGBA1C) 3617.9992 umol/L
[2024-07-17 14:55] LABS: Alanine Aminotransferase 19 U/L (0-31); Albumin Level 4.2 g/dL (3.5-5.0); Alkaline Phosphatase 43 U/L (39-117); Anion Gap 9 (12-20); Aspartate Amino Transferase 24 U/L (5-31); Bilirubin Total 0.7 mg/dL (0.0-1.0); Blood Urea Nitrogen 11 mg/dL (9-16); Calcium 8.9 mg/dL (8.4-10.2); Carbon Dioxide 28 mmol/L (22-29); Chloride 107 mmol/L (96-108); Cholesterol 173 mg/dL (<200); Estimated Glomerular Filt Rate > 60; Glucose Random 94 mg/dL (60-115); HDL Cholesterol 64 mg/dL (>40); LDL Cholesterol Calculated 101 mg/dL (<100); Potassium 3.8 mmol/L (3.3-5.1); Sodium 140 mmol/L (135-145); Total Protein 6.6 g/dL (6.5-8.0); Triglycerides 41 mg/dL (<150)
[2024-07-17 14:57] LABS: Creatinine Urine 25.39 mg/dL; Microalbumin Urine < 5.0 mg/L
[2024-07-17 15:12] LABS: TSH reflex Free T4 1.37 uIU/mL (0.32-4.0); Vitamin D 25-OH Total 152.8 ng/mL (>30)
[2024-07-17 15:15] LABS: Vitamin B12 491 pg/mL (200-900)
--- OUTSIDE RECORDS SUMMARY | 2024-07-23 18:22 | XMS_ITS | Continuity of Care Document ---
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 It does not include entries that were removed or entered in error. Problem Status Onset Date Problem Type Date of Resolution Comments Source Major depression single episode, in partial remission Active 02/13/20 21 Condition Ambulatory Pharmacy visit for: services physical Active 10/10/19 12 Condition visit for: services physical (INITIAL POST-DEPLOYMENT ASSESSMENT: DOCUMENTED ON PQ9020): 1. ASIMS 2796 completed, items of concern listed on PDHRA for review. Pt has no medical concerns she wishes to address today. No significant impairment. Pt referred to immunizations and PH. 2. Recommend pt continue malaria medications as directed post return; pt to follow up with PCM for needed redeployment malaria prophylaxis 3. Pt describes herself in good health and is able to perform her assigned duties. Pt denies HI/SI 4. Recommend PPD screening 60-90 days upon return 5. Recommend f/u with PCM as needed. [facility] assessment of patient condition work-related Inactive Condition ASSESSMENT OF PATIENT CONDITION WORK-RELATED (INITIAL POST-DEPLOYMENT ASSESSMENT: DOCUMENTED ON UL2817) DoD vaginal pain Active Condition DoD visit for: administrative purpose Active Condition DoD no psychiatric diagnosis or condition on axis I Inactive Condition DoD visit for: issue repeat prescription for medication Inactive Condition DoD phase of life or life circumstance problem Active Condition DoD legal problems or arrests Inactive Condition DoD visit for: services physical pre-deployment Active Condition DoD hemorrhoids Active Condition DoD constipation Inactive Condition DoD change in the stool color Inactive Condition DoD Contraceptives Active Condition DoD Medications Combined list of outpatient medications from Department of Defense and Veterans Affairs facilities.Medications provided include 1) outpatient medications from the last 15 months, and 2) patient-reported medications. Medication Details Route Status Patient Instructions Prescription Expires Prescription Number Last Dispense Date Ordering Provider Order Date Order Qty Source METHYLPHENI DATE ER (methylphen idate HCl), 36 MG, TAB ER 24, ORAL, [employer]IGEN [employer], 100 ea. BOTTLE Active [id number] 2023 30 Pharmac y Data Transac tion Service Facilit y METHYLPHENI DATE ER (methylphen idate HCl), 36 MG, TAB ER 24, ORAL, [employer], 100 ea. BOTTLE Active [id number] 2023 60 Pharmac y Data Transac tion Service Facilit y METHYLPHENI DATE ER (methylphen idate HCl), 36 MG, TAB ER 24, ORAL, [employer], 100 ea. BOTTLE Active [id number] 2022 60 Pharmac y Data Transac tion Service Facilit y Allergies, Adverse Reactions, Alerts Combined list of allergies from Department of Defense and Veterans Affairs facilities. It does not include entries that were removed or entered in error. Substance Category Reaction Severity Reaction type Status Date Reported Comments Source No Known Allergies Drug allergy (disorder) active 01/02/2023 [employer] Immunizations Combined list of available immunizations from the Department of Defense and Veterans Affairs facilities. 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 Comments Source influenza, injectable, quadrivalent- pf 2021 [id number] GlaxoSmithKli ne complet ed influenza , injectabl e, quadrival ent-pf 05/19/22 Given Ambulat ory Pharmac y SARS-CoV-2 (COVID-19) mRNA-Bivalent 2021 [id number] complet ed SARS-CoV- 2 (COVID-19 ) mRNA-Biva lent 04/24/22 Given Ambulat ory Pharmac y COVID Vaccine Moderna 2021 [id number] complet ed COVID Vaccine Moderna 09/19/21 Given Ambulat ory Pharmac y influenza, injectable, quadrivalent- pf 2020 [id number] 150 GlaxoSmithKli ne complet ed influenza , injectabl e, quadrival ent-pf 07/18/21 Given Ambulat ory Pharmac y Influenza, injectable, quadrivalent, preservative free 4 2020 [id number] 150 Smithine (SKB) complet ed Influenza , injectabl e, quadrival ent, preservat agnieszka free [facility] tetanus, diphtheria, acellular pertu is 2020 [id number] 115 sanofi pasteur complet ed tetanus, diphtheri a, acellular pertussis 12/12/20 Given Ambulat ory Pharmac y tetanus toxoid, reduced diphtheria toxoid, and acellular pertu is vaccine, adsorbed 2 2020 [id number] 115 Sanofi Pasteur (PMC) complet ed tetanus toxoid, reduced diphtheri a toxoid, and acellular pertussis vaccine, adsorbed DoD COVID Vaccine Moderna 2020 [id number] 207 complet ed COVID Vaccine Moderna 10/09/20 Given Ambulat ory Pharmac y SARS-COV-2 (COVID-19) vaccine, mRNA, spike protein, LNP, preservative free, 100 mcg or 50 mcg dose 2 2020 [id number] 207 Moderna [employer] (MOD) complet ed SARS-COV- 2 (COVID-19 ) vaccine, mRNA, spike protein, LNP, preservat agnieszka free, 100 mcg or 50 mcg dose DoD COVID Vaccine Moderna 2020 [id number] 207 complet ed COVID Vaccine Moderna 09/06/20 Given Ambulat ory Pharmac y SARS-COV-2 (COVID-19) vaccine, mRNA, spike protein, LNP, preservative free, 100 mcg or 50 mcg dose 1 [id number] 207 Moderna [employer] (MOD) complet ed SARS-COV- 2 (COVID-19 ) vaccine, mRNA, spike protein, LNP, preservat agnieszka free, 100 mcg or 50 mcg dose DoD influenza, injectable, quadrivalent- pf 2019 [id number] 150 Seqirus complet ed influenza , injectabl e, quadrival ent-pf 06/20/20 Given Ambulat ory Pharmac y Influenza, injectable, quadrivalent, preservative free 1 2019 [id number] 077 150 Seqirus (SEQ) complet ed Influenza , injectabl e, quadrival ent, preservat agnieszka free DoD influenza, injectable, quadrivalent- pf 2018 [id number] 505 150 Seqirus complet ed influenza , injectabl e, quadrival ent-pf 06/14/19 Given Ambulat ory Pharmac y Influenza, injectable, quadrivalent, preservative free 1 2018 [id number] 505 150 Seqirus (SEQ) complet ed Influenza , injectabl e, quadrival ent, preservat agnieszka free DoD measles/mumps /rubella virus vaccine 2017 [id number] 03 Merck & Company Inc complet ed measles/m umps/rube lla virus vaccine 05/22/18 Given Ambulat ory Pharmac y typhoid Vi capsular polysaccharid e vac 2017 [id number] 101 sanofi pasteur complet ed typhoid Vi capsular polysacch aride vac 05/22/18 Given Ambulat ory Pharmac y influenza, injectable, quadrivalent- pf 2017 [id number] 150 Seqirus complet ed influenza , injectabl e, quadrival ent-pf 05/22/18 Given Ambulat ory Pharmac y meningococcal A,C,Y,W-135 (MCV4P) 2017 [id number] 114 sanofi pasteur complet ed meningoco ccal A,C,Y,W-1 35 (MCV4P) 05/22/18 Given Ambulat ory Pharmac y yellow fever vaccine 2017 [id number] 37 sanofi pasteur complet ed yellow fever vaccine 05/22/18 Given Ambulat ory Pharmac y measles, mumps and rubella virus vaccine 2 2017 [id number] 03 Merck (MSD) complet ed measles, mumps and rubella virus vaccine DoD yellow fever vaccine 1 2017 [id number] 37 Sanofi Pasteur (PMC) complet ed yellow fever vaccine DoD typhoid Vi capsular polysaccharid e vaccine 2 2017 [id number] 101 Sanofi Pasteur (PMC) complet ed typhoid Vi capsular polysacch aride vaccine DoD meningococcal polysaccharid e (groups A, C, Y and W-135) diphtheria toxoid conjugate vaccine (MCV4P) 2 2017 [id number] 114 Sanofi Pasteur (PMC) complet ed meningoco ccal polysacch aride (groups A, C, Y and W-135) diphtheri a toxoid conjugate vaccine (MCV4P) DoD Influenza, injectable, quadrivalent, preservative free 7 2017 [id number] 150 Seqirus (SEQ) comple t ed Influenza , injectabl e, quadrival ent, preservat agnieszka free DoD measles/mumps /rubella virus vaccine 2017 [id number] 03 Merck & Company Inc complet ed measles/m umps/rube lla virus vaccine 01/09/18 Given Ambulat ory Pharmac y measles, mumps and rubella virus vaccine 1 2017 [id number] 03 Merck (MSD) complet ed measles, mumps and rubella virus vaccine DoD influenza, seasonal, injectable 2016 [id number] 141 complet ed influenza , seasonal, injectabl e 05/25/17 Given Ambulat ory Pharmac y Influenza, seasonal, injectable 1 2016 [id number] 141 Transcribed (TRS) complet ed Influenza , seasonal, injectabl e DoD influenza, seasonal, injectable-pf 2015 [id number] 140 CSL Behring complet ed influenza , seasonal, injectabl e-pf 06/19/16 Given Ambulat ory Pharmac y Influenza, seasonal, injectable, preservative free 0 2015 [id number] 140 CSL BioMCNhe[employer]ies, Inc. (CSL) complet ed Influenza , seasonal, injectabl e, preservat agnieszka free DoD influenza, seasonal, injectable-pf 2014 [id number] 140 CSL Behring complet ed influenza , seasonal, injectabl e-pf 05/21/15 Given Ambulat ory Pharmac y Influenza, seasonal, injectable, preservative free 0 2014 [id number] 140 CSL BioMCNhe[employer], Inc. (CSL) complet ed Influenza , seasonal, injectabl e, preservat agnieszka free DoD anthrax vaccine 2013 [id number] 24 Emergent Biosolutions complet ed anthrax vaccine 08/19/13 Given Ambulat ory Pharmac y anthrax vaccine 4 2013 [id number] 24 [employer]gent [employer] [place] ([facility]) complet ed anthrax vaccine DoD Human Papillomaviru s,quadrivalen t(HPV4) 2012 [id number] 62 Merck & Company Inc complet ed Human Papilloma virus,kamran drivalent (HPV4) 05/06/13 Given Ambulat ory Pharmac y human papilloma virus vaccine, quadrivalent 0 2012 [id number] 62 Merck (MSD) complet ed human papilloma virus vaccine, quadrival ent DoD influenza, live, intranasal,qu adrivalent 2012 [id number] 149 Medimmune Inc comple t ed influenza , live, intranasa l,quadriv alent 05/01/13 Given Ambulat ory Pharmac y influenza, live, intranasal, quadrivalent 3 2012 [id number] 149 [employer] (MED) complet ed influenza , live, intranasa l, quadrival ent DoD measles virus vaccine 0 2012 05 () Not Given measles virus vaccine DoD rubella virus vaccine 0 2012 06 () Not Given rubella virus vaccine DoD anthrax vaccine 2012 [id number] 24 [employer]olutions complet ed anthrax vaccine 12/15/12 Given Ambulat ory Pharmac y anthrax vaccine 3 2012 [id number] 24 [employer] [place] (MIP) complet ed anthrax vaccine DoD anthrax vaccine 2011 [id number] 24 Emergent [employer]olutions complet ed anthrax vaccine 07/09/12 Given Ambulat ory Pharmac y anthrax vaccine 2 2011 [id number] 24 [employer] [place] (MIP) complet ed anthrax vaccine DoD vaccinia (smallpox) vaccine 2011 VV04-00 3A 75 [employer] complet ed vaccinia (smallpox ) vaccine 06/06/12 Given Ambulat ory Pharmac y vaccinia (smallpox) vaccine 1 2011 VV04-00 3A 75 [facility] complet ed vaccinia (smallpox ) vaccine DoD anthrax vaccine 2011 [id number] 24 [employer] complet ed anthrax vaccine 05/31/12 Given Ambulat ory Pharmac y typhoid Vi capsular polysaccharid e vac 2011 G1542 101 sanofi pasteur complet ed typhoid Vi capsular polysacch aride vac 05/31/12 Given Ambulat ory Pharmac y anthrax vaccine 1 2011 [id number] 24 [employer] [place]arnell (MIP) complet ed anthrax vaccine DoD typhoid Vi capsular polysaccharid e vaccine 1 2011 G1542 101 Sanofi Pasteur (PMC) complet ed typhoid Vi capsular polysacch aride vaccine DoD influenza, seasonal, injectable-pf 2011 [id number] 140 sanofi pasteur complet ed influenza , seasonal, injectabl e-pf 04/27/12 Given Ambulat ory Pharmac y Influenza, seasonal, injectable, preservative free 2 2011 [id number] 140 Sanofi Pasteur (PMC) complet ed Influenza , seasonal, injectabl e, preservat agnieszka free DoD hepatitis B pediatric/ado lescent 2011 [id number] [id number] 08 GlaxoSmithKli ne complet ed hepatitis B pediatric /adolesce nt 12/02/11 Given Ambulat ory Pharmac y hepatitis B vaccine, pediatric or pediatric/ado lescent dosage 3 2011 [id number] [id number] 08 Smithine (SKB) complet ed hepatitis B vaccine, pediatric or pediatric /adolesce nt dosage DoD Hep A, pediatric, unspecified formul 2011 [id number] 2BA 31 GlaxoSmithKli ne complet ed Hep A, pediatric , unspecifi ed formul 10/26/11 Given Ambulat ory Pharmac y hepatitis A vaccine, pediatric dosage, unspecified formulation 2 2011 [id number] 2BA 31 Marcelline (SKB) complet ed hepatitis A vaccine, pediatric dosage, unspecifi ed formulati on DoD hepatitis B pediatric/ado lescent 2010 [id number] 08 Merck & Company Inc complet ed hepatitis B pediatric /adolesce nt 05/31/11 Given Ambulat ory Pharmac y hepatitis B vaccine, pediatric or pediatric/ado lescent dosage 2 2010 [id number] 08 Merck (MSD) complet ed hepatitis B vaccine, pediatric or pediatric /adolesce nt dosage DoD influenza, seasonal, injectable-pf 2010 [id number] 140 sanofi pasteur complet ed influenza , seasonal, injectabl e-pf 04/30/11 Given Ambulat ory Pharmac y Influenza, seasonal, injectable, preservative free 1 2010 [id number] 140 Sanofi Pasteur (PMC) complet ed Influenza , seasonal, injectabl e, preservat agnieszka free DoD hepatitis B pediatric/ado lescent 2010 [id number] 08 Merck & Company Inc complet ed hepatitis B pediatric /adolesce nt 04/13/11 Given Ambulat ory Pharmac y Hep A, pediatric, unspecified formul 2010 [id number] 8CA 31 GlaxoSmithKli ne complet ed Hep A, pediatric , unspecifi ed formul 04/13/11 Given Ambulat ory Pharmac y measles, mumps and rubella virus vaccine 1 2010 03 () Not Given measles, mumps and rubella virus vaccine DoD hepatitis B vaccine, pediatric or pediatric/ado lescent dosage 1 2010 [id number] 08 Merck (MSD) complet ed hepatitis B vaccine, pediatric or pediatric /adolesce nt dosage DoD varicella virus vaccine 1 2010 21 () Not Given varicella virus vaccine DoD hepatitis A vaccine, pediatric dosage, unspecified formulation 1 2010 [id number] 8CA 31 SmithKline (SKB) complet ed hepatitis A vaccine, pediatric dosage, unspecifi ed formulati on DoD tuberculin purified protein derivative 2010 [id number] 96 sanofi pasteur complet ed tuberculi n purified protein derivativ e 04/10/11 Given Ambulat ory Pharmac y poliovirus vaccine, inactivated 2010 G1068 10 sanofi pasteur complet ed polioviru s vaccine, inactivat ed 04/08/11 Given Ambulat ory Pharmac y tetanus, diphtheria, acellular pertu is 2010 [id number] 9BB 115 [employer] nv complet ed tetanus, diphtheri a, acellular pertussis 04/08/11 Given Ambulat ory Pharmac y meningococcal A,C,Y,W-135 (MCV4P) 2010 [id number] 114 sanofi pasteur complet ed meningoco ccal A,C,Y,W-1 35 (MCV4P) 04/08/11 Given Ambulat ory Pharmac y poliovirus vaccine, inactivated 1 2010 G1068 10 Sanofi Pasteur (PMC) complet ed polioviru s vaccine, inactivat ed DoD meningococcal polysaccharid e (groups A, C, Y and W-135) diphtheria toxoid conjugate vaccine (MCV4P) 1 2010 [id number] 114 Sanofi Pasteur (PMC) complet ed meningoco ccal polysacch aride (groups A, C, Y and W-135) diphtheri a toxoid conjugate vaccine (MCV4P) DoD tetanus toxoid, reduced diphtheria toxoid, and acellular pertu is vaccine, adsorbed 1 2010 [id number] [id number] 115 [employer] (SKB) complet ed tetanus toxoid, reduced diphtheri a toxoid, and acellular pertussis vaccine, adsorbed DoD Vital Signs Combined list of inpatient and outpatient Vital Signs from Department of Defense and Veterans Affairs, ranging from 12 months to all on record, depending upon the facility. Vital Sign Value Date Comments Source No data available for this section Ambulatory Pharmacy Encounters Combined list of: 1) Encounters from Department of Veterans Affairs facilities going back up to thelast 18 months. 2) Encounters from the Department of Defense facilities going back up to 280 months. Location Location Details Encounter Type Encounter Number Reason For Visit Attending Provider ADM Date DC Date Status Disposition Source ELIZABETH [facility] [address]([facility]) OUTPATIENT [id number] 0740-bi rth control -(331/6 74/1) RADHA SHELTON 04/14 Released w/o Limitations [facility] [place] [address]([facility] d) [employer](Pre ventive Health Assessmen t) OUTPATIENT [id number] FLAKITA MCFADDEN 09/26 Released w/o Limitations [employer](P reventi Health Assessm ent) [employer]([facility] GME Team H) OUTPATIENT [id number] 1st initial visit, female rufina nichols/MAEVE Sood 12/08 Released w/o Limitations [employer](D [facility] GME Team H) [employer]([facility] C GME Team H) TELE CONSULT [id number] Notes Entered by: DAVID FAJARDO 20 Apr 2012 0851 ------- ------- ------- ------- -- [place]INID[place] TRIAGE NANCY SOLIS 04/20 Referred for Appointment [employer](D [facility] GME Team H) [employer]([facility] C_ GME_Team IDo Not Use) OUTPATIENT [id number] pain with BM along with rectal bleedin BEBO Hicks 04/23 Released w/o Limitations [employer]([facility]_ GME_Tea m IDo Not Use) [employer](Pre ventive Health Assessmen t) OUTPATIENT [id number] TOVA Briceño 06/12 Released w/o Limitations [employer](P reventi ve Health Assessm ent) [employer] OUTPATIENT [id number] predepl oyment SHARON OLIVAREZ 07/04 Released w/o Limitations [employer]([facility] GME Team J) Theater Facility OUTPATIENT [id number] Theater Provider 01/28 Released w/o Limitations Theater Facilit y [employer]([facility] GME Team H) TELE CONSULT [id number] Notes Entered by: ELZA KEVIN 01 Apr 2013 1430 ------- ------- ------- ------- -- RX RENEWAL TRACI LEBRON 04/01 [employer]([facility] GME Team H) [employer]([facility] C Deploymen t Medicine) OUTPATIENT [id number] [facility] MAURI Stack 06/10 Released w/o Limitations [employer]([facility] Deploym ent Medicin e) [employer](Pre ventive Health Assessmen t) OUTPATIENT [id number] 7 BRONWYN GUTIERRES 06/20 Released w/o Limitations [employer](P reventi ve Health Assessm ent) [employer]([facility]_ GME_Team IDo Not Use) OUTPATIENT [id number] VAGINAL AREA ITCHING /PAIN SINCERE DENNIS 06/27 Released w/o Limitations [employer]([facility]_ GME_Tea m IDo Not Use) [employer]([facility] Neuropsyc hological Assess) OUTPATIENT [id number] PREDEPL OYMENT ABRAHAN LAM 08/09 Released w/o Limitations [employer]([facility] Neurops ycholog ical Assess) [employer] OUTPATIENT [id number] [facility]DD 2795/RE VIEW MED RED/MED ICATION RESHMA LAMBERT 08/20 Released w/o Limitations [employer] [employer]([facility] Team H) TELE CONSULT [id number] Notes Entered by: TASH QUIROZ 18 Sep 2013 0741 ------- ------- ------- ------- -- CHIARA MCKEON 09/18 Referred for Appointment [employer]([facility] Team H) Theater Facility OUTPATIENT [id number] Theater Provider 01/25 Released w/o Limitations Theater Facilit y [employer]([facility] Flight Medicine [facility] Clin) OUTPATIENT [id number] Notes Entered by: CALISTA JHAVERI 26 Mar 2014 1303 ------- ------- ------- ------- -- AF Form 422- Joining Vinay/R CAROL Reaves 03/26 Released w/o Limitations [employer]([facility] Flight Medicin e [facility] Clin) [employer]([facility] Team H) OUTPATIENT [id number] separat ion phy. MARVIN Cohen 03/26 Released w/o Limitations [employer]([facility] Team H) [employer]([facility] Team H) TELE CONSULT [id number] Notes Entered by: JESSA GREGORIO 18 Apr 2014 1359 ------- ------- ------- ------- -- outproc JESSA Medrano 04/18 Other Not Elsewhere Classified [employer]([facility] Team H) [employer](PHA Cell) TELE CONSULT [id number] Notes Entered by: MARY JO GALVAN 22 May 2018 0809 ------- ------- ------- ------- -- Malaria Medicat ion for Deploym CAYETANO Giang 05/22 [employer](P EDMOND Cell) [employer](Jaylen salas [facility] Team A) OUTPATIENT [id number] CAYETANO HERNANDEZ 12/28 Released w/o Limitations [facility](H anscom [facility] Team [facility]) [facility] [facility] [id number] / New pt medicat ion renewal s/ROSLYN Ellis 09/03 Released w/o Limitations [facility] [place] [facility] [facility] TELE CONSULT [id number] Notes Entered by: Abran AGARWAL 03 Sep 2020 1316 ------- ------- ------- ------- -- IUD / lml/cc APOLINAR CORREA 09/03 [facility] [facility] [facility] [facility] 1) OUTPATIENT [id number] IUD Removal /Insert IVAN Dominguez 09/07 Released w/o Limitations [facility] [place] [facility] [facility] [place]) OUTPATIENT [id number] Pre Employm ent - [employer] RESHMA Villatoro 10/23 Released w/o Limitations [facility](F light Med [place]) [facility](Hea ring Conservat ion) OUTPATIENT [id number] Annual check up. JEFFREY DURÁN 08/24 Released w/o Limitations [address] [place] [address](H earing Conserv ation) [id number] AMDS Between Visit [id number] 04/16 Discharge Disposition: Home or Self Care [id number] AMDS Procedures Combined list of: 1) Procedures from Department of Veterans Affairs facilities going back up to thelast 18 months, not all VA non-surgical procedures are included; 2) All procedures from the Department of Defense facilities. Procedure Procedure Type Code Date Perfomer Comments Sourc e INJECTION(S), ANESTHETIC AGENT(S) AND/OR STEROID; OTHER PERIPHERAL NERVE OR BRANCH 021 [facility] NEUROPSYC TSTNG(EG,FRANKIE-REIT AN NEUROPSYC ABHILASH,KRISH MEMRY SCALES&[place] CARD SORT TST),W QUALIFIED HEALTH CARE PROFSIONAL INTERP&RPT,ADMINISTERE D AUTOMOBILE RADIATOR MECHANIC,/HR,TECHNIC JUAN SCOTT,CINDIE-2-FCE [facility] PSYCHOTHERAPY, 30 MINUTES WITH PATIENT 013 [facility] PSYCHOTHERAPY, [address] [facility] PSYCHIATRIC DIAGNOSTIC EVALUATION [facility] PSYCHIATRIC DIAGNOSTIC EVALUATION [facility] INTRODUCTION OF NEEDLE OR INTRACATHETER, VEIN [facility] UNLISTED PSYCHIATRIC SERVICE OR PROCEDURE [facility] NEUROPSYCHOLOGICAL TESTING (EG, [place] CARD SORTING TEST), ADMINISTERED BY A COMPUTER, WITH QUALIFIED HEALTH FILTER PRESS OPERATOR INTERPRETATION AND REPORT [facility] THERAPEUTIC, PROPHYLACTIC, OR DIAGNOSTIC INJECTION (SPECIFY SUBSTANCE OR DRUG); SUBCUTANEOUS OR INTRAMUSCULAR 011 [facility] PURE TONE AUDIOMETRY (THRESHOLD); AIR ONLY 022 [facility] Psychometric Neuropsych Testing Battery Admin By Painter Bottom Psychometric Neuropsych Testing Battery Admin By Painter Bottom [id number] [facility] Psychotherapy Indiv Interactive Approx 30 Minutes [address] [facility] Psychiatric Diagnostic Evaluation Comprehensive Examination Psychiatric Diagnostic Evaluation Comprehensive Examination [id number] [facility] Psychotherapy Indiv Interactive Approx 30 Minutes [address] [facility] Psychiatric Diagnostic Evaluation Comprehensive Examination Psychiatric Diagnostic Evaluation Comprehensive Examination [id number] [facility] Psychotherapy For Crisis Intervention Psychotherapy For Crisis Intervention [id number] [facility] Psychometric Neuropsych Testing Battery Admin By Computer Psychometric Neuropsych Testing Battery Admin By Computer [id number] [facility] Implantable Contraceptive Capsules Removal Implantable Contraceptive Capsules Removal 26362 IVAN DIAZ Implantable Contraceptive Capsules Insertion IVAN DIAZ Nerve Block Local Infiltration Nerve Block Local Infiltration 85121 IVAN DIAZ Threshold Audiogram (Pure Tone) Automated Threshold Audiogram (Pure Tone) Automated 0208T JEFFREY DURÁN Threshold Audiogram (Pure Tone) Threshold Audiogram (Pure Tone) 16153 JEFFREY DURÁN No data available for this section Ambulatory Pharmacy Social History Combined list of available smoking, tobacco, and other social history from [facility] facilities. Social History Type Response Date Comment Sourc e Female 08/25/2022 Ambulatory Pha rmacy This section is an empty soc ial history section. DoD Sexual Orientation Ambula tory Pharmacy Gender identity Ambulator y Pharmacy Assessment and Plan Combined list of future care activities from [facility] facilities (e.g., assessment and plan notes, appointments, orders, and referrals). Additional future care activities may be listed in the Plan of Care section. Result Assessment and Plan Date Source Assessment and Plan No data available for this section 07/23/2024 Ambulatory Pharmacy Functional Status Combined list of recent functional and cognitive assessments recorded at [facility] Functional [place] Measurement (FIM) Scale: 1 = Total Assistance (Subject = 0% +), 2 = Maximal Assistance (Subject = 25% +), 3 = Moderate Assistance (Subject = 50% +), 4 = Minimal Assistance (Subject = 75% +), 5 = Supervision, 6 = Modified [place] (Device), 7 = Complete [place] (Timely, Safely). Assessment Date/Time Source Assessment Type Assessment Skill Assessment Score Assessment Details No data available for this section
== END 2024-07-17 12:08 | disposition home or self-care (01) ==
LOC: HO.WFDLDS 12:07
PROVIDERS: Visit Provider Nurse Practitioner Family
DX: Z00.00 Encounter for general adult medical examination without abnormal findings (principal); Z13.1 Encounter for screening for diabetes mellitus
CPT/HCPCS: 36415; 80053; 80061; 81003; 82306; 82570; 82607; 82746; 83036; 84443; 85027

== ENCOUNTER 2025-07-24 08:00 | Outpatient (REF) | payer OTHER, SELFPAY ==
[2025-07-24 11:12] LABS: Hematocrit 43.3 % (37.0-47.0); Hemoglobin 14.7 g/dl (12.0-16.0); Mean Corpuscular HGB Conc 33.9 g/dl (31.0-35.0); Mean Corpuscular Hemoglobin 29.8 pg (27.0-33.0); Mean Corpuscular Volume 87.8 fL (80.0-98.0); NRBC Abs Auto 0.000 X10*3/uL (0.0-0.012); NRBC Pct Auto 0.0 /100WBC (0.0-0.2); Platelet Count 222 X10*3/uL (160-400); Red Blood Count 4.93 X10*6/uL (4.20-5.50); White Blood Count 6.4 X10*3/uL (4.8-10.8)
[2025-07-24 11:37] LABS: Alanine Aminotransferase 22 U/L (0-31); Albumin Level 4.4 g/dL (3.5-5.0); Alkaline Phosphatase 50 U/L (39-117); Anion Gap 10 (12-20); Aspartate Amino Transferase 25 U/L (5-31); Blood Urea Nitrogen 16 mg/dL (9-16); Calcium 9.0 mg/dL (8.4-10.2); Carbon Dioxide 27 mmol/L (22-29); Chloride 106 mmol/L (96-108); Cholesterol 162 mg/dL (<200); Estimated Glomerular Filt Rate > 60; HDL Cholesterol 62 mg/dL (>40); Potassium 4.2 mmol/L (3.3-5.1); Sodium 139 mmol/L (135-145); Total Protein 6.5 g/dL (6.5-8.0); Triglycerides 46 mg/dL (<150)
[2025-07-24 11:52] LABS: Microalbum/Creatinine Ratio Ur 5.3 ug/mg cr (<30)
[2025-07-24 12:03] LABS: Folate 8.9 ng/mL (> or = 4.0); Vitamin B12 677 pg/mL (200-900)
== END 2025-07-24 08:01 | disposition home or self-care (01) ==
LOC: HO.WFDLDS 08:00
PROVIDERS: PCP Nurse Practitioner Family; Visit Provider Nurse Practitioner Family
DX: Z00.00 Encounter for general adult medical examination without abnormal findings (principal); F90.0 Attention-deficit hyperactivity disorder, predominantly inattentive type; Z83.3 Family history of diabetes mellitus; K64.0 First degree hemorrhoids; Z87.42 Personal history of other diseases of the female genital tract; Z82.69 Family history of other diseases of the musculoskeletal system and connective tissue
CPT/HCPCS: 36415; 80053; 80061; 82043; 82306; 82570; 82607; 82746; 83036; 84443; 85027; 96127; 99212

== ENCOUNTER 2025-07-24 08:00 | Outpatient (AMB) | payer OTHER, SELFPAY ==
[2025-07-24 08:07] VITALS: BP 106/64; PULSE 78; RESP 12; TEMP 36.5; O2SAT 98; BMI 24.6
--- NOTE | 2025-07-24 08:07 | MHC.PC.OV ---
Vital Signs 07/24/25 08:07 Height 5 ft 8 in Weight 162 lb 2 oz BMI 24.6 BP 106/64 Blood Pressure Location Rt brachial Position Sitting Respiration 12 Pulse 78 Pulse Source Pulse Oximeter Temp 97.7 F Temp Source Oral Pulse Oximetry (%) 98 Oxygen Delivery Method Room Air Intake Visit Reasons: Physical Intake Note: Physical Allergies No Known Allergies Allergy (Verified 07/24/25 08:15) Medication List - Last Reconciled 07/24/25 by CHAD Amezcua methylphenidate HCl ER 36 mg PO DAILY Tobacco use date assessed: 07/24/25 Dental Screening Dental Screen Date: 07/24/25 Did you have a dental visit in the last 12 months?: Yes Did you have a dental problem in the last 6 months where you did not have access to dental care?: No HPI HPI Comments History of Present Illness Details 30 y/o F with ADHD, family hx of DM, hx of hemorrhoids Social: Family hx: Dad, MGF, Sister Type 1 DM & lupus benign brain tumor; Specialists: Counselor/Psych Derm fu as needed Health Maintenance Pap 3 years ago, hx of abnormal, next appt Aug 2025 Tdap UTD Flu 05/2025 History of Present Illness The patient is a 30-year-old female presenting for a complete physical exam. Attention-Deficit/Hyperactivity Disorder (ADHD): - The patient has a history of ADHD managed by an outside prescriber and psychiatrist with [facility]. - She reports medication helps with work and experiences cycles of burnout. - The patient uses caffeine daily. Wellness and Health Maintenance: - The patient is generally healthy. - Last year, the patient had a rash which was biopsied and removed, and it has resolved. - Abdominal bloating and constipation have improved, and she now has daily bowel movements, which she attributes to increased intake of probiotics and water. - She has a history of hemorrhoids. - Her sister was recently diagnosed with lupus and also has type 1 diabetes and a benign brain tumor; a cousin on her father's side also has lupus. - The patient has an IUD and experiences spotting for a few days with emotional and hormonal symptoms, but no significant bleeding. - She has a history of abnormal Pap smears and her next appointment is scheduled for August after being rescheduled. Past Medical History - Attention Deficit Hyperactivity Disorder (ADHD) - Hemorrhoids - History of abnormal Pap smear - History of constipation and abdominal bloating, now resolved - History of skin lesion, status post biopsy and removal - Denies anxiety or depression Past Surgical History - History of skin biopsy and removal of a lesion - Intrauterine device (IUD) in situ Family History - Sister with type 1 diabetes - Sister with lupus - Sister with a benign brain tumor - Cousin on paternal side with lupus Social History - Employment: Works in the - Substance use: Drinks coffee daily and tea at night - Sleep: Reports sleeping okay with a pre-bedtime routine and use of melatonin - Nutrition: Takes probiotics and drinks more water Health Maintenance - The patient received a flu shot this season. - Her Tdap is believed to be up to date through the . - Labs from last year showed an LDL of 101 mg/dL and a good cholesterol of 64 mg/dL. - Last year's vitamin D3 level was very high at 152, and she was advised to stop her supplement. - She is due for her Pap smear in August and is aware of the need to follow up due to a history of abnormal results. - The patient performs her own self-breast exams. Review of Systems - Constitutional: Reports being generally healthy. - Eyes/Ears/Nose/Throat: Denies ear problems or ringing. - Skin: Denies current rashes or skin issues. - Gastrointestinal: Reports daily bowel movements. Denies ongoing constipation or abdominal bloating. - Genitourinary: Reports spotting with menses due to IUD. - Musculoskeletal: Reports muscle soreness in hip flexors and quads, attributed to exercise. Denies joint aches and pains otherwise. - Neurological: Denies headaches. - Psychiatric: Denies anxiety or depression. Physical Exam General: Well developed, well nourished, in no acute distress. Appears stated age. Head: Normocephalic, atraumatic. Eyes: Pupils are equal, round and reactive to light and accommodation. Conjunctivae are clear. Scleras nonicteric bilat. Vision grossly normal. Ears: TMs clear AU, EACS WNL. No problems with ears noted. Nose: Patent, without discharge. No issues noted. Neck: No carotid bruit bilat. Supple, no adenopathy or thyromegaly. No pain or tenderness noted. Breast: Edu on SBE. Patient reports performing self breast exams regularly. Lungs: Clear to auscultation bilaterally. No rales, rhonchi or wheeze noted. Good air flow in all franco. Heart: Regular rate and rhythm. No murmurs, click, rubs or gallops are noted. Abdomen: Bowel sounds present in all quadrants. The abdomen is soft, nontender, with no masses or organomegaly noted. No hernias are noted. Patient reports improvement in abdominal bloating and constipation with probiotics and increased water intake. : Deferred. 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 Patient has an IUD and experiences spotting. Pulses: Peripheral pulses are equal and palpable bilaterally. Extremities: No clubbing, cyanosis nor edema is noted. No swelling in ankles. Neurologic: Gait and station normal. Cranial Nerves 2-12 intact. Motor strength grossly symmetrical and intact. No sensory loss. Balance normal. Skin: No rashes, ulcers, or lesions noted. Turgor is good. Skin color is good. Hair and nails are without abnormalities. Patient has a scar from a previous biopsy. Psych: Normal eye contact, affect and mood appropriate, and normal interactions. Patient is alert and appropriate to context. No anxiety or depression noted. ADHD managed with medication. Results - Last year's labs: Vitamin D3 was 152, LDL was 101, and HDL was 64. Medical Decision Making The patient is a 30-year-old female presenting for a routine annual physical examination. Her medical history is notable for ADHD, which is managed by an outside psychiatrist, and a history of hemorrhoids. We discussed her new family history of lupus in her sister, who also has type 1 diabetes, and a cousin. I educated the patient that while this places her at an increased risk, there is no routine screening for lupus. Symptoms to monitor for include persistent rashes and significant joint pain, and if these develop, a workup can be initiated. Issues from her last visit, including a skin rash, constipation, and abdominal bloating, have resolved. Last year's labs were reviewed, noting a high vitamin D level, which has since been addressed, and a reassuring cholesterol profile with an LDL of 101 and HDL of 64. Given her history and overall good health, we will proceed with routine screening labs today. We also addressed health maintenance, including her up-to-date immunizations and the importance of following up on her abnormal Pap smear history with her scheduled gynecological appointment in August. The physical exam was unremarkable. The plan is to obtain screening labs, encourage sign-up for the patient portal for results and communication, and continue current management. Plan 1. Annual Physical Exam - The patient is in good health with resolved issues of rash and constipation from the prior year. - Screening labs for anemia, diabetes, and liver disease will be ordered. - The patient was counseled on the increased risk for autoimmune diseases like lupus due to family history, and symptoms to watch for such as persistent rash or joint pain. - The patient was encouraged to sign up for the patient portal to receive lab results and communicate with the office. 2. Attention-Deficit/Hyperactivity Disorder (Adhd) - The patient continues to be managed by an outside psychiatrist for her ADHD and reports that her medication is helpful. - No changes to management were made at this visit. 3. Health Maintenance: Gynecological - The patient has an upcoming Pap smear scheduled for August. - She was advised to keep this appointment, particularly given her history of abnormal results, to monitor for any changes. Patient Instructions - Go to the lab for blood work today. - Sign up for the patient portal using the link that will be sent to your email. The link is only good for 24 hours. - Make sure to keep your gynecology appointment in August for your Pap smear, especially since you have had abnormal results in the past. - Let me know if you develop any new symptoms like a rash that doesn't go away or unusual joint aches and pains, as these could be signs of lupus, which runs in your family. - Continue your healthy habits like drinking plenty of water. - Stop at the supervisor front to get your blood work done and schedule another appointment. - RTO 1 year CPE sooner as needed. Consent The patient consented to screening labs. Patient was informed and verbally consented to the use of an ambient scribe for clinic note documentation during this visit. [facility] Medical History (Updated 07/24/25 @ 08:33 by ESTHER Amezcua) No pertinent past medical history Surgical History (Updated 07/17/24 @ 11:06 by Yuriy Jenkins MA) No pertinent past surgical history Family History Father Hypertension Diabetes Paternal Grandmother Cardiovascular disease Paternal Grandfather Diabetes Sister Diabetes Social History Household Members: Spouse Both parents involved: No Caregiver staying overnight: No Housing: Apartment Are you a primary progressive care unit registered nurse to a significant other at home: No Do you presently have visiting nurse or other home services: No 75 years or older and lives alone: No Alcohol intake: current Alcohol intake frequency: a few times a month Patient Tobacco Use Status: Never used Tobacco e-Cigarette/Vaping Use: Never Used Second Hand Smoke Exposure: No service: Yes Current occupational status: employed Current occupation: [employer] Cognitive needs: No Hearing needs: No Vision needs: No Questionnaire PHQ-9 Over the last 2 weeks, how often have you been bothered by any of the following problems? 1. Little interest or pleasure in doing things: not at all 2. Feeling down, depressed, or hopeless: not at all 3. Trouble falling or staying asleep, or sleeping too much: not at all 4. Feeling tired or having little energy: several days 5. Poor appetite or overeating: not at all 6. Feeling bad about yourself - or that you are a failure or have let yourself or your family down: not at all 7. Trouble concentrating on things, such as reading the newspaper or watching television: not at all 8. Moving or speaking so slowly that other people could have noticed. Or the opposite - being so fidgety or restless that you have been moving around a lot more than usual: not at all 9. Thoughts that you would be better off or of hurting yourself in some way: not at all Total score: 1 Depression Screening Interpretation: Negative Depression Screening Done: Yes 47442 - PHQ-9 Billing: Yes Source: Developed by Drs. Chang Kunz, Emily Mccabe, Matt Walters and colleagues, with an educational thierno from [employer]. Thrive Questionnaire Date Thrive assessed: 07/24/25 I am a: Patient What is your living situation today?: I have a steady place to live Within the past 12 months, did the food you bought not last and you didn't have the money to get more?: Never true Within the past 12 months, did you worry whether your food would run out before you got money to buy more?: Never true Do you have trouble paying for medicines?: No Do you have trouble getting transportation to medical appointments?: No Do you have trouble paying your heating and electricity bill?: No Do you have trouble taking care of your child, family member or friend?: No Do you have trouble with day-to-day activities such as bathing, preparing meals, shopping, managing finances, etc.?: No Are you currently unemployed and looking for a job?: No Are you interested in more education?: Yes Please select the resources that you would like help with: None Currently or been in a relationship where the following occur: No concerns reported THRIVE Score: 0 AUDIT C Alcohol Use Questionnaire (AUDIT-C) 1. How often do you have a drink containing alcohol?: 2-4 times a month 2. How many drinks containing alcohol do you have on a typical day when you are drinking?: 1 or 2 3. How often do you have six or more drinks on one occasion?: Never Total Score: 2 Score Reviewed/Action Taken: Yes JONNIE-7 AMB Questionnaire JONNIE-7 Date JONNIE - 7 assessed: 07/24/25 Feeling nervous, anxious, or on edge: 0 = Not at all Not being able to stop or control worryin = Not at all Worrying too much about different things: 0 = Not at all Trouble relaxin = Not at all Being so restless that it is hard to sit still: 0 = Not at all Becoming easily annoyed or irritable: 0 = Not at all Feeling afraid as if something awful might happen: 0 = Not at all Total JONNIE-7 score (0-4 normal; 5-9 mild; 10-14 moderate; 15-21 severe): 0 Source: Developed by Drs. Chang Kunz, Emily Mccabe, Matt Walters and colleagues, with an educational thierno from [employer]. JONNIE-7 Assessment Billing JONNIE-7 Assessment Tool: JONNIE-7 Assessment 50493 Physical exam (Primary Care) Vital Signs: Last Vital Signs Temp 97.7 F 07/24/25 08:07 Pulse 78 07/24/25 08:07 Resp 12 07/24/25 08:07 BP 106/64 07/24/25 08:07 Pulse Ox 98 07/24/25 08:07 Oxygen Delivery Method Room Air 07/24/25 08:07 BMI result Body Mass Index 24.6 Tobacco/Smoking Status: Tobacco use Status Tobacco use date assessed 07/24/25 07/24/25 08:11 Patient Tobacco Use Status Never used Tobacco 07/24/25 08:11 e-Cigarette/Vaping Use Never Used 07/24/25 08:11 PHQ-9: PHQ-9 Score PHQ-9: Total score 1 07/24/25 08:11 Depression Screening Interpretation: Negative Thrive Assessment: Date of Thrive Assessment Date Thrive assessed 07/17/24 07/24/25 08:11 Currently or been in a relationship where the following occur: No concerns reported Coding Level of Care Code Est Pt Prev Care 18-39y(19950) Add On Preventative Visit Only Diagnoses Adult general medical exam Z00.00 Attention deficit hyperactivity disorder (ADHD), predominantly inattentive type F90.0 Attention deficit-hyperactivity disorder type: predominantly inattentive Family history of diabetes mellitus Z83.3 Grade I hemorrhoids K64.0 Hemorrhoid type: first degree Laboratory exam ordered as part of routine general medical examination Z00.00 History of abnormal cervical Pap smear Z87.42 Family history of systemic lupus erythematosus Z82.69 Additional Codes PHQ-9 - 80608 - PHQ-9 Billing: Yes ([id number]) JONNIE-7 Assessment Billing - JONNIE-7 Assessment Tool: JONNIE-7 Assessment 51885 ([id number]) Assessment & Plan Assessment & Plan (1) Adult general medical exam: Onset Date: ~07/24/25 Code(s): Z00.00 - Encounter for general adult medical examination without abnormal findings Category: Medical (2) ADHD: Code(s): F90.9 - Attention-deficit hyperactivity disorder, unspecified type Category: Medical Qualifiers: Attention deficit-hyperactivity disorder type: predominantly inattentive Qualified Code(s): F90.0 - Attention-deficit hyperactivity disorder, predominantly inattentive type (3) Family history of diabetes mellitus: Comment: sister Code(s): Z83.3 - Family history of diabetes mellitus Category: Medical (4) Hemorrhoids: Code(s): K64.9 - Unspecified hemorrhoids Category: Medical Qualifiers: Hemorrhoid type: first degree Qualified Code(s): K64.0 - First degree hemorrhoids (5) Laboratory exam ordered as part of routine general medical examination: Code(s): Z00.00 - Encounter for general adult medical examination without abnormal findings Category: Medical (6) History of abnormal cervical Pap smear: Onset Date: ~2022 Code(s): Z87.42 - Personal history of other diseases of the female genital tract Category: Medical (7) Family history of systemic lupus erythematosus: Comment: sister Code(s): Z82.69 - Family history of other diseases of the musculoskeletal system and connective tissue Category: Medical Plan , Orders: Orders Microalbumin, Random (w Creat) Today Z00.00 - Encounter for general adult medical examination without abnormal findings Hemoglobin A1c Today Z00.00 - Encounter for general adult medical examination without abnormal findings TSH reflex Free T4 Today Z00.00 - Encounter for general adult medical examination without abnormal findings Complete Blood Count no Diff Today Z00.00 - Encounter for general adult medical examination without abnormal findings Comprehensive Met. Panel Today Z00.00 - Encounter for general adult medical examination without abnormal findings Lipid Panel Today Z00.00 - Encounter for general adult medical examination without abnormal findings Vitamin B12 and Folate Today Z00.00 - Encounter for general adult medical examination without abnormal findings Vitamin D 25-OH Total Today Z00.00 - Encounter for general adult medical examination without abnormal findings Patient Instructions: Health screenings for women You should visit your health care provider from time to time, even if you are healthy. The purpose of these visits is to: Screen for medical issues Assess your risk for future medical problems Encourage a healthy lifestyle Update vaccinations and other preventive care services Help you get to know your provider in case of an illness Information Even if you feel fine, you should still see your provider for regular checkups. These visits can help you avoid problems in the future. For example, the only way to find out if you have high blood pressure is to have it checked regularly. High blood sugar and high cholesterol levels also may not have any symptoms in the early stages. A simple blood test can check for these conditions. There are specific times when you should see your provider or receive specific health screenings. The [place] Preventive Services Task Force publishes a list of recommended screenings. Below are screening guidelines for women ages 18 to 39. BLOOD PRESSURE SCREENING Your blood pressure should be checked at least once every 3 to 5 years if: Your blood pressure is in the normal range (top number less than 120 mm Hg and bottom number less than 80 mm Hg) You don't have risk factors for high blood pressure Ask your provider if you need your blood pressure checked more often if: The top number is 120 to 129 mm Hg or the bottom number is 70 to 79 mm Hg You have diabetes, heart disease, kidney problems, are overweight, or have certain other health conditions You have a first-degree relative with high blood pressure You are Black You had high blood pressure during a If the top number is 130 mm Hg or greater or the bottom number is 80 mm Hg or greater, this is considered stage 1 hypertension. Schedule an appointment with your provider to learn how you can reduce your blood pressure. Watch for blood pressure screenings in your area. Ask your provider if you can stop in to have your blood pressure checked. BREAST CANCER SCREENING Experts do not agree about the benefits of breast self-exams in finding breast cancer or saving lives. Talk to your provider about what is best for you. A screening mammogram is not recommended for most women under age 40. Your provider may discuss and recommend mammograms, MRI scans, or ultrasounds if you have an increased risk for breast cancer, such as: A mother or sister who had breast cancer at a young age (most often starting screening earlier than the age the close relative was diagnosed) You carry a high-risk genetic marker CERVICAL CANCER SCREENING Cervical cancer screening should start at age 21 years unless your provider advises otherwise. After the first test: Women ages 21 through 29 should have a Pap test every 3 years. Exoprts do not agree on whether HPV testing is recommended for this age group. Women ages 30 through 65 should be screened with either a Pap test every 3 years or the HPV test every 5 years or both tests every 5 years (called cotesting ). Women who have been treated for precancer (cervical dysplasia) should continue to have Pap tests for 20 years after treatment or until age 65, whichever is longer. If you have had your uterus and cervix removed (total hysterectomy), and you have not been diagnosed with cervical cancer or precancer (high grade cervical neoplasia), you do not need cervical cancer screening. CHOLESTEROL SCREENING Cholesterol screening should begin at: Age 45 for women with no known risk factors for coronary heart disease Age 20 for women with known risk factors for coronary heart disease Repeat cholesterol screening should take place: Every 5 years for women with normal cholesterol levels More often if changes occur in lifestyle (including weight gain and diet) More often if you have diabetes, heart disease, kidney problems, or certain other conditions DIABETES SCREENING You should be screened for diabetes starting at age 35 and then repeated every 3 years if you have no risk factors for diabetes. Screening may need to start earlier and be repeated more often if you have other risk factors for diabetes, such as: You have a first degree relative with diabetes. You are overweight or have obesity. You have high blood pressure, prediabetes, or a history of heart disease. Screening for diabetes should be done if you are planning to become and you are overweight and have other risk factors such as high blood pressure. DENTAL EXAM Go to the dentist once or twice every year for an exam and cleaning. Your dentist will evaluate if you need more frequent visits. EYE EXAM Have an eye exam every 5 to 10 years before age 40. If you have vision problems, have an eye exam every 2 years or more often if recommended by your provider. You should have an eye exam that includes an examination of your retina (back of your eye) at least every year if you have diabetes. IMMUNIZATIONS Commonly needed vaccines include: Flu shot: get one every year. COVID-19 vaccine: ask your provider what is best for you. Tetanus-diphtheria and acellular pertussis (Tdap) vaccine: have one at or after age 19 as one of your tetanus-diphtheria vaccines if you did not receive it as an adolescent. Tetanus-diphtheria: have a booster (or Tdap) every 10 years. Varicella vaccine: receive 2 doses if you never had chickenpox or the varicella vaccine. Hepatitis B vaccine: receive 2, 3, or 4 doses, depending on your exact circumstances. Measles, mumps, and rubella (MMR) vaccine: receive 1 to 2 doses if you are not already immune to MMR. Your provider can tell you if you are immune. Ask your provider about the human papillomavirus (HPV) vaccine if: You have not received the HPV vaccine in the past You have not completed the full vaccine series (you should catch up on this shot) Ask your provider if you should receive other immunizations if you have certain health problems that increase your risk for some diseases such as pneumonia. INFECTIOUS DISEASE SCREENING Women who are sexually active should be screened for chlamydia and gonorrhea up until age 25. Women 25 years and older should be screened for chlamydia and gonorrhea if at high risk. Screening for hepatitis C: All adults ages 18 to 79 should get a one-time test for hepatitis C. people should be screened at every . Screening for human immunodeficiency virus (HIV): All people ages 15 to 65 should get a one-time test for HIV. Depending on your lifestyle and medical history, you may also need to be screened for infections such as syphilis and HIV, as well as other infections. PHYSICAL EXAM All adults should visit their provider from time to time, even if they are healthy. The purpose of these visits is to: Screen for disease Assess your risk of future medical problems Encourage a healthy lifestyle Update your vaccinations and other preventive care services Maintain a relationship with a provider in case of an illness Your height, weight, and BMI should be checked at every exam. During your exam, your provider may ask you about: Depression and anxiety Diet and exercise Alcohol and tobacco use Safety issues, such as using seat belts, smoke detectors, and intimate partner violence Your medicines and risk for interactions SKIN SELF-EXAM Your provider may check your skin for signs of skin cancer, especially if you're at high risk, such as if you: Have had skin cancer before Have close relatives with skin cancer Have a weakened immune system OTHER SCREENING Talk with your provider about colon cancer screening if you have a strong family history of colon cancer or polyps, or if you have had inflammatory bowel disease or polyps yourself. Routine bone density screening of women under 40 is not recommended.
--- OUTSIDE RECORDS SUMMARY | 2025-07-24 08:08 | XMS_ITS | Clinical Summary ---
Author Organization [facility] it Address [address] [place] [address] Care Team Providers Care [employer] Driver Name Role Phone Unavailable Primary Care Provider Unavailabl e Social History Tobacco Use Types Packs/Day Years Used Date Smoking Tobacco: Never Assessed Comments Unknown Sex and Gender Information Value Date Recorded Sex Assigned at Not on file Legal Sex Female 8:10 PM EST Gender Identity Not on file Sexual Orientation Not on file Plan of Treatment Health Maintenance Due Date Last Done Comments DTaP,Tdap,and Td Vaccines (1 - Tdap) 2012 Hepatitis B Vaccines (1 of 3 - 19+ 3-dose series) 2012 Cervical Cancer Screening: P ap Smear 2014 HPV Vaccines (1 - 3-dose SCD M series) 2020 Depression Screening 08/14/2024 COVID-19 Vaccine ( - 2024-2 6 season) 2025 Influenza Vaccine (#1) 2025 RSV Immunization Adult Patie nts (1 - 1-dose 75+ series) 2068 HIB Vaccines Aged Out No longer eligi ble based on patient's age to complete this topic Hepatitis A Vaccines Aged Out No long er eligible based on patient's age to complete this topic IPV Vaccines Aged Out No longer eligi ble based on patient's age to complete this topic MMR Vaccines Aged Out No longer eligi ble based on patient's age to complete this topic Meningococcal ACWY Vaccine Aged Out N o longer eligible based on patient's age to complete this topic Meningococcal B Vaccine Aged Out No l onger eligible based on patient's age to complete this topic Pneumococcal Vaccine: Pediat rics (0 to 5 Years) and At-Risk Patients (6 to 49 Years) Aged Out No longer eligible b ased on patient's age to complete this topic RSV Immunization Patients Un jenny 20 months Aged Out No longer eligible b ased on patient's age to complete this topic Varicella Vaccines Aged Out No longer eligible based on patient's age to complete this topic
== END 2025-07-24 08:29 | disposition home or self-care (01) ==
LOC: HO.HMCFM 08:00
PROVIDERS: PCP Nurse Practitioner Family; Visit Provider Nurse Practitioner Family
DX: Z00.00 Encounter for general adult medical examination without abnormal findings (principal); F90.0 Attention-deficit hyperactivity disorder, predominantly inattentive type; K64.0 First degree hemorrhoids; Z87.42 Personal history of other diseases of the female genital tract; Z82.69 Family history of other diseases of the musculoskeletal system and connective tissue; Z83.3 Family history of diabetes mellitus